=== PATIENT | male | born 1965 | race Caucasian/White ===

== ENCOUNTER 2018-07-16 01:47 | Inpatient (IN) | END 2018-07-18 17:52 | disposition home or self-care (01) | DRG 433 ==

== ENCOUNTER 2018-07-20 01:54 | Observation (INO) | END 2018-07-20 15:20 | disposition home or self-care (01) ==

== ENCOUNTER 2018-09-16 22:48 | Emergency (ER) | payer OTHER ==
[~2018-09-16] VITALS: Ht 172.7 cm; Wt 102.1 kg
[~2018-09-16 22:48] MED LIST: FURO20TA3 PO; NICO2GUM7 BUCCAL; SPIR50TA PO; THIA100T56 PO
[2018-09-16 22:55] VITALS: Ht 172.7 cm; Wt 102.1 kg
--- NOTE | 2018-09-17 00:51 | ERD ---
ER Documentation Chief Complaint Chief Complaint abdo Distention HPI The patient is a 53-year-old male, presenting to the ER because of recurrent abdominal distention for the last couple days, wants to have abdominocentesis, last abdominal paracentesis was June 2018. He denies fever, chills, cough, neck pain, chest pain, dyspnea, vomiting or dysuria. He last drank about 2 months ago, smokes socially Past medical history: Cirrhosis, history of alcohol dependence, hepatitis C, ventral hernia, hypertension Past surgical history: Right wrist ROS All systems reviewed and are negative except as per history of present illness. Medications Home Meds Active Scripts Furosemide* (Furosemide*) 20 Mg Tablet, 20 MG PO BID, #60 TAB 1 Refill Prov:ALDO ZURITA 07/20/18 Discontinued Scripts Spironolactone* (Aldactone*) 50 Mg Tablet, 50 MG PO BID, #60 TAB 1 Refill Prov:ALDO ZURITA 07/20/18 Thiamine* (Vitamin B-1*) 100 Mg Tablet, 100 MG PO DAILY for 30 Days, #30 TAB 3 Refills Prov:DREW REY MD 07/18/18 Nicotine Polacrilex (Nicorette) 2 Mg Gum, 2 MG BUCCAL Q4H PRN for NICOTINE WITHDRAWAL for 1 Day, #1 Prov:DREW REY MD 07/18/18 Allergies Allergies: Coded Allergies: No Known Allergy (Unverified , 09/17/18) PMhx/Soc History of Surgery: Yes (right arm rods s/p fall) Anesthesia Reaction: No Hx Neurological Disorder: No Hx Respiratory Disorders: No Hx Cardiac Disorders: Yes Hx Psychiatric Problems: No Hx Miscellaneous Medical Probl: No Hx Alcohol Use: Yes (6-10 beer a day) Hx Substance Use: No Hx Tobacco Use: Yes (.5 pack/day) Physical Exam Vitals Vital Signs Date Temp Pulse Resp B/P (MAP) Pulse Ox O2 O2 Flow FiO2 Time Delivery Rate 09/17/18 76 17 112/67 99 Room Air 03:24 (82) 09/17/18 98.1 89 17 162/93 100 Room Air 01:05 (116) 09/16/18 98.5 97 16 142/73 100 22:55 (96) Physical Exam Const: No acute distress. Head: Atraumatic. Eyes: Normal Conjunctiva. ENT: Normal External Ears, Nose and Mouth. Neck: Full range of motion. No meningismus. Resp: Clear to auscultation bilaterally. Cardio: Regular rate and rhythm. Abd: Soft, distended, normal bowel sounds, non tender, ventral hernia. Skin: No petechiae or rashes. Back: No midline or flank tenderness. Ext: No cyanosis, or edema. Neur: Awake and alert. No focal deficit Psych: Normal Mood and Affect. Result Diagram: 09/17/18 [id number] Results 24 hrs Laboratory Tests Test 09/17/18 01:30 09/17/18 02:21 White Blood Count 4.8 10^3/ul Red Blood Count 2.30 10^6/ul Hemoglobin 8.2 g/dl Hematocrit 24.3 % Mean Corpuscular Volume 105.7 fl Mean Corpuscular Hemoglobin 35.7 pg Mean Corpuscular Hemoglobin Concent 33.7 g/dl Red Cell Distribution Width 13.5 % Platelet Count 85 10^3/UL Mean Platelet Volume 10.4 fl Immature Granulocytes % 0.400 % Neutrophils % 45.0 % Lymphocytes % 30.5 % Monocytes % 13.2 % Eosinophils % 9.6 % Basophils % 1.3 % Nucleated Red Blood Cells % 0.0 /100WBC Immature Granulocytes # 0.020 10^3/ul Neutrophils # 2.2 10^3/ul Lymphocytes # 1.5 10^3/ul Monocytes # 0.6 10^3/ul Eosinophils # 0.5 10^3/ul Basophils # 0.1 10^3/ul Nucleated Red Blood Cells # 0.0 10^3/ul Sodium Level 133 mmol/L Potassium Level 3.7 mmol/L Chloride Level 101 mmol/L Carbon Dioxide Level 26 mmol/L Anion Gap 6 Blood Urea Nitrogen 14 mg/dl Creatinine 0.71 mg/dl Est Glomerular Filtrat Rate mL/min > 60 mL/min Glucose Level 139 mg/dl Calcium Level 8.0 mg/dl Total Bilirubin 1.0 mg/dl Direct Bilirubin 0.00 mg/dl Indirect Bilirubin 1.0 mg/dl Aspartate Amino Transf (AST/SGOT) 41 IU/L Alanine Aminotransferase (ALT/SGPT) 32 IU/L Alkaline Phosphatase 177 IU/L Total Protein 7.3 g/dl Albumin 2.6 g/dl Globulin 4.70 g/dl Albumin/Globulin Ratio 0.55 Lipase 316 U/L Bedside Urine pH (LAB) 5.5 Bedside Urine Protein (LAB) Trace Bedside Urine Glucose (UA) Negative Bedside Urine Ketones (LAB) Negative Bedside Urine Blood Trace-lysed Bedside Urine Nitrite (LAB) Negative Bedside Urine Leukocyte Esterase (L Negative Current Medications Medications Dose Sig/Vernell Start Time Status Last (Trade) Ordered Route PRN Stop Time Admin Dose Reason Admin 1 tab ONCE ONCE 09/17/18 DC 09/17/18 Acetaminophen PO 01:30 01:35 / 09/17/18 01:31 Hydrocodone Bitart ([place] (5/325)) Ondansetron 4 mg ONCE STAT 09/17/18 DC 09/17/18 HCl (Zofran ODT 01:11 01:35 Odt) 09/17/18 01:13 Procedures/MDM MEDICAL MAKING DECISION: The patient is a 53-year-old male, presenting with recurrent ascites, was treated with [place] 5 mg p.o. for pain and Zofran ODT for nausea with good response. He was advised that there is no interventional radiologist available and advised to return in the morning for abdominal paracentesis. I do not suspect SBP The differential diagnoses considered include but are not limited to cholelithiasis, cholecystitis, choledocholithiasis, cholangitis, pancreatitis, hepatitis, gastritis, peptic ulcer disease, gastric ulcer, appendicitis, cystitis, diverticulitis, partial small bowel obstruction. Departure Diagnosis: Primary Impression: Ascites Additional Impressions: Anemia Thrombocytopenia Condition: Good Comments He was advised to return in the morning for abdominal paracentesis DAYA BAHENA MD Sep 17, 2018 00:51
[2018-09-17] MEDS ORDERED: ONDANSETRON (ODT) 4 MG TAB ODT STA (01:11)
[2018-09-17] MEDS ORDERED: HYDROCODONE/APAP (5/325) TAB PO ONE (01:30)
[2018-09-17 03:24] VITALS: BP 112/67; PULSE 76; RESP 17
[2018-09-17] MEDS ORDERED: SPIR50TA PO (17:36)
== END 2018-09-17 03:25 | disposition home or self-care (01) ==
LOC: E/R 22:48
DX: R18.8 Other ascites (principal); D64.9 Anemia, unspecified; D69.6 Thrombocytopenia, unspecified; F17.210 Nicotine dependence, cigarettes, uncomplicated; I10 Essential (primary) hypertension
CPT/HCPCS: 36415; 80053; 81003; 83690; 85025; Z7502; Z7610; 99283

== ENCOUNTER 2018-09-17 15:31 | Emergency (ER) | payer OTHER ==
[~2018-09-17] VITALS: Ht 177.8 cm; Wt 91.0 kg
[2018-09-17 15:33] VITALS: Ht 177.8 cm; Wt 91.0 kg
[2018-09-17] MEDS ORDERED: SPIR50TA PO (17:36)
--- NOTE | 2018-09-17 18:45 | ERD ---
ER Documentation Chief Complaint Chief Complaint pt is bib self with c/o needs paracentesis HPI This is a 53-year-old male who presented to the emergency department a known history of alcoholic liver cirrhosis. The patient indicates his last paracentesis was roughly 1 week prior to arrival. The patient indicates he is been experiencing worsening abdominal distention but denies any fever shaking or chills. He denies any hemoptysis hematemesis no melanotic stools. He is complaining of mild dyspnea which he states is a common symptom he experiences just prior to him requiring a paracentesis. He denies any chest pain. He states he was here yesterday at the hospital but the interventional radiologist was not present and therefore did not undergo the paracentesis. He states that ancillary laboratory work was obtained yesterday. He indicates he has not consumed alcohol for 60 days. ROS All systems reviewed and are negative except as per history of present illness. Medications Home Meds Active Scripts Furosemide* (Furosemide*) 20 Mg Tablet, 20 MG PO BID, #60 TAB 1 Refill Prov:ALDO ZURITA 07/20/18 Reported Medications Spironolactone* (Aldactone*) 50 Mg Tablet, 50 MG PO BID, #60 TAB 09/17/18 Discontinued Scripts Spironolactone* (Aldactone*) 50 Mg Tablet, 50 MG PO BID, #60 TAB 1 Refill Prov:ALDO ZURITA 07/20/18 Thiamine* (Vitamin B-1*) 100 Mg Tablet, 100 MG PO DAILY for 30 Days, #30 TAB 3 Refills Prov:DREW REY MD 07/18/18 Nicotine Polacrilex (Nicorette) 2 Mg Gum, 2 MG BUCCAL Q4H PRN for NICOTINE WITHDRAWAL for 1 Day, #1 Prov:DREW REY MD 07/18/18 Allergies Allergies: Coded Allergies: No Known Allergy (Unverified , 09/17/18) PMhx/Soc History of Surgery: Yes (ORTHOPEDIC 1989) Anesthesia Reaction: No Hx Neurological Disorder: No Hx Respiratory Disorders: No Hx Cardiac Disorders: Yes (HTN) Hx Psychiatric Problems: No Hx Miscellaneous Medical Probl: Yes (UMBILICAL HERNIA, CIRRHOSIS ) Hx Alcohol Use: Yes (LAST DRINK 60 DAYS AGO) Hx Substance Use: No Hx Tobacco Use: Yes Physical Exam Vitals Vital Signs Date Temp Pulse Resp B/P (MAP) Pulse Ox O2 O2 Flow FiO2 Time Delivery Rate 09/17/18 98.9 100 18 145/84 98 15:33 (104) Physical Exam Constitutional:Well-developed. Well-nourished. HEENT:Normocephalic. Atraumatic.Pupils were equal round reactive to light. Moist mucous membranes.No tonsillar exudates. Neck: No nuchal rigidity. No lymphadenopathy. No posterior cervical spine tenderness or step-offs. Respiratory: Not using accessory muscles of respiration.Lungs were clear to auscultation bilaterally. No rhonchi. No rales. No wheezing. Cardiovascular: Regular rate regular rhythm.No murmurs. No rubs were appreciated.S1, S2 normal. Distal pulses are palpable 2+ bilaterally. GI: Abdomen distended with tense ascites. Positive fluid thrill. No tenderness. No pulsatile abdominal masses or bruits. No rebound. No guarding. Bowel sounds were present and normal. Muscle skeletal: Full range of motion of both the upper and lower extremities bilaterally.Normal muscle tone.No assymetrical calf tenderness or swelling. Skin: No petechia, no purpura. No lesions on the palms or the soles of the feet. No maculopapular rash. NEURO: Patient was alert, awake, orientated x3.No facial droop. Gait observed and normal with no ataxia.Speech had regular rate and rhythm. No focal neurological deficits. Procedures/MDM This is a 53-year-old male who presented to the emergency department for therapeutic paracentesis. The patient indicates he takes 20 mg of Lasix on a daily basis. He is following up on an outpatient clinic and currently is undergoing insurance changes to [place] to require definitive care. The patient had ancillary laboratory work obtained yesterday but did not have a coagulation panel. Therefore INR and PT PTT was obtained. These are within normal limits. The patient had mild thrombocytopenia. The interventional radiologist did perform a paracentesis with removal of 5 L of transparent fluid. There is no evidence of spontaneous bacterial peritonitis. The patient tolerated the procedure well. The patient was discharged home in fair condition. They were instructed to return to the emergency department at any time if there was any worsening of their condition. The patient stated they would follow up with their PCP in the next 24-48 hours to initiate a suitable medication regimen under the care of their PCP as well as to allow their PCP to monitor any drug reactions. The patient was discharged home with prescriptions after they gave informed consent to the new medication. They were also fully informed by myself on the adverse effects and adverse drug interactions in order to provide adequate safeguards to prevent possible adverse reactions to medications. Departure Diagnosis: Primary Impression: Ascites Ascites type: due to alcoholic cirrhosis Qualified Codes: K70.31 - Alcoholic cirrhosis of liver with ascites Condition: CHARAN Liu MD Sep 17, 2018 18:45
[2018-09-17 20:29] VITALS: BP 137/72; PULSE 85; RESP 16
== END 2018-09-17 20:29 | disposition home or self-care (01) ==
LOC: E/R 15:31
DX: K70.31 Alcoholic cirrhosis of liver with ascites (principal); Z87.891 Personal history of nicotine dependence
CPT/HCPCS: 49083; 85610; 85730; Z7502; Z7610

== ENCOUNTER 2018-09-25 14:43 | Emergency (ER) | payer OTHER ==
[~2018-09-25] VITALS: Ht 167.6 cm; Wt 103.1 kg
[~2018-09-25 14:43] MED LIST changes: -NICO2GUM7 BUCCAL; -THIA100T56 PO
[2018-09-25 14:48] VITALS: Ht 167.6 cm; Wt 103.1 kg
[2018-09-25] MEDS ORDERED: LIDOCAINE/MYLANTA 40 ML BTL PO STA (15:43)
[2018-09-25] MEDS ORDERED: FAMOTIDINE 20 MG INJ IV STA (15:43)
[2018-09-25] MEDS ORDERED: BELLADONNA/PHENOBARBITAL TAB PO STA (15:43)
[2018-09-25] MEDS ORDERED: LISI1TAB8 PO (17:08)
[2018-09-25] MEDS ORDERED: GABA300C16 PO (17:08)
[2018-09-25] MEDS ORDERED: SPIR50TA PO (17:09)
[2018-09-25] MEDS ORDERED: AMLO2.5T78 PO (17:09)
[2018-09-25] MEDS ORDERED: FURO20TA3 PO (17:09)
[2018-09-25] MEDS ORDERED: LIDOCAINE 1% (MPF) 5 ML VIAL ONE (19:02)
--- NOTE | 2018-09-25 19:03 | NUR ---
Ultrasound guided paracentesis of the right side was performed. Dr. Eros Solo aspirated 5000 mL of yellow fluid. Fluid was discarded. Patient tolerated procedure well.
[2018-09-25 19:13] VITALS: BP 102/46; PULSE 80; RESP 14
--- NOTE | 2018-09-25 19:58 | ERD ---
ER Documentation Chief Complaint Chief Complaint Complains of abdominal pain with bloating x 2 days HPI This is a 53-year-old male with a past medical history of hypertension, alcoholic cirrhosis with ascites requiring frequent paracenteses, last paracentesis 1-2 weeks ago who is presenting with desire for paracentesis. The patient endorses progressive worsening abdominal distention and bloating, bilateral lower extremity 1+ pitting edema and slight shortness of breath. He endorses getting these symptoms when he requires a paracentesis. He otherwise feels well. The patient denies feeling sick recently. The patient denies fever or chills. The patient has had no headache or vision changes. The patient does not endorse neck or back pain. The patient denies lightheadedness or dizziness. The patient has had no chest pain or trouble breathing. The patient denies nausea or vomiting. The patient denies changes to bowel movements or urination. The patient has had no focal deficits. The patient has had no weakness or numbness or tingling to the face or extremities. ROS All systems reviewed and are negative except as per history of present illness. Medications Home Meds Reported Medications Amlodipine Besylate* (Amlodipine Besylate*) 2.5 Mg Tablet, 2.5 MG PO DAILY, #30 TAB 09/25/18 Spironolactone* (Aldactone*) 50 Mg Tablet, 50 MG PO BID, #60 TAB 09/25/18 Furosemide* (Furosemide*) 20 Mg Tablet, 20 MG PO BID, #30 TAB 09/25/18 Gabapentin* (Gabapentin*) 300 Mg Capsule, 300 MG PO TID, #90 CAP 09/25/18 Lisinopril/Hydrochlorothiazide (Lisinopril-Hctz 20-25 mg Tab) 1 Each Tablet, 1 EACH PO DAILY, TAB 09/25/18 Spironolactone* (Aldactone*) 50 Mg Tablet, 50 MG PO BID, #60 TAB 09/17/18 Discontinued Scripts Furosemide* (Furosemide*) 20 Mg Tablet, 20 MG PO BID, #60 TAB 1 Refill Prov:ALDO ZURITA 07/20/18 Allergies Allergies: Coded Allergies: No Known Allergy (Unverified , 09/25/18) PMhx/Soc History of Surgery: Yes (R forearm fracture Sx) Anesthesia Reaction: No Hx Neurological Disorder: No Hx Respiratory Disorders: No Hx Cardiac Disorders: Yes (HTN) Hx Psychiatric Problems: No Hx Miscellaneous Medical Probl: Yes (UMBILICAL HERNIA, CIRRHOSIS, ascites ) Hx Alcohol Use: Yes (90 days sober) Hx Substance Use: No Hx Tobacco Use: Yes Smoking Status: Current some day smoker FmHx Family History: No diabetes Physical Exam Vitals Vital Signs Date Temp Pulse Resp B/P (MAP) Pulse Ox O2 O2 Flow FiO2 Time Delivery Rate 09/25/18 80 14 102/46 100 Room Air 19:13 (64) 09/25/18 83 10 107/74 100 Room Air 15:53 (85) 09/25/18 98.3 100 20 116/62 99 14:48 (80) Physical Exam Const: No apparent distress, well-developed, well-nourished Head: Normocephalic, Atraumatic Eyes: Normal Conjunctiva. Extraocular movements intact. Pupils equal, round and reactive to light ENT: Normal External Ears, Nose and Mouth. Neck: Full range of motion. No meningismus. Resp: Scattered wheezes. No rales or rhonchi Cardio: Regular rate and rhythm. No murmurs, rubs or gallops Abd: Distended with ascites. Nontender. No rebound or guarding. Normal bow el sounds Skin: No petechiae or rashes. Mild jaundice. Back: No midline tenderness. No CVA tenderness Ext: No cyanosis, or edema Neur: Awake and alert, oriented 4. Cranial nerves intact. No facial droop. Normal strength, sensation and coordination. Psych: Normal Mood and Affect Result Diagram: 09/25/18 1605 09/25/18 1605 Results 24 hrs Laboratory Tests Test 09/25/18 16:05 White Blood Count 5.4 10^3/ul Red Blood Count 2.45 10^6/ul Hemoglobin 8.9 g/dl Hematocrit 25.8 % Mean Corpuscular Volume 105.3 fl Mean Corpuscular Hemoglobin 36.3 pg Mean Corpuscular Hemoglobin Concent 34.5 g/dl Red Cell Distribution Width 14.2 % Platelet Count 93 10^3/UL Mean Platelet Volume 10.5 fl Immature Granulocytes % 0.200 % Neutrophils % 56.4 % Lymphocytes % 22.9 % Monocytes % 12.7 % Eosinophils % 6.9 % Basophils % 0.9 % Nucleated Red Blood Cells % 0.0 /100WBC Immature Granulocytes # 0.010 10^3/ul Neutrophils # 3.0 10^3/ul Lymphocytes # 1.2 10^3/ul Monocytes # 0.7 10^3/ul Eosinophils # 0.4 10^3/ul Basophils # 0.1 10^3/ul Nucleated Red Blood Cells # 0.0 10^3/ul Urine Color MERYL Urine Clarity SLIGHTLY CLOUDY Urine pH 5.0 Urine Specific [place] 1.020 Urine Ketones TRACE mg/dL Urine Nitrite NEGATIVE mg/dL Urine Bilirubin 1+ mg/dL Urine Urobilinogen 2+ mg/dL Urine Leukocyte Esterase NEGATIVE [place]/ul Urine Microscopic RBC 1 /HPF Urine Microscopic WBC 12 /HPF Urine Squamous Epithelial Cells FEW /HPF Urine Hyaline Casts FEW /HPF Urine Hemoglobin NEGATIVE mg/dL Urine Glucose NEGATIVE mg/dL Urine Total Protein NEGATIVE mg/dl Sodium Level 133 mmol/L Potassium Level 4.2 mmol/L Chloride Level 97 mmol/L Carbon Dioxide Level 26 mmol/L Anion Gap 10 Blood Urea Nitrogen 17 mg/dl Creatinine 0.95 mg/dl Est Glomerular Filtrat Rate mL/min > 60 mL/min Glucose Level 109 mg/dl Calcium Level 8.1 mg/dl Total Bilirubin 1.2 mg/dl Direct Bilirubin 0.00 mg/dl Indirect Bilirubin 1.2 mg/dl Aspartate Amino Transf (AST/SGOT) 43 IU/L Alanine Aminotransferase (ALT/SGPT) 36 IU/L Alkaline Phosphatase 203 IU/L Troponin I < 0.012 ng/ml Total Protein 7.0 g/dl Albumin 2.4 g/dl Globulin 4.60 g/dl Albumin/Globulin Ratio 0.52 Lipase 335 U/L Current Medications Medications Dose Sig/Vernell Start Time Status Last (Trade) Ordered Route PRN Stop Time Admin Dose Reason Admin Famotidine 20 mg ONCE STAT 09/25/18 DC 09/25/18 (Pepcid Iv) IV 15:43 16:18 09/25/18 15:44 40 ml ONCE STAT 09/25/18 DC 09/25/18 Miscellaneous PO 15:43 16:18 Medication 09/25/18 15:44 (Gi Cocktail (2)) [place]/ 2 tab ONCE STAT 09/25/18 DC 09/25/18 Phenobarbital PO 15:43 16:18 () 09/25/18 15:44 Lidocaine 5 ml STK-MED 09/25/18 DC 09/25/18 (Xylocaine ONCE .ROUTE 19:02 19:03 1% (Mpf)) 09/25/18 19:03 Procedures/MDM MDM The patient's presentation warrants further investigation. Previous medical records, if available, were reviewed. LABS The patient's laboratory testing was obtained and reviewed. No emergent treatment was required unless described below. CBC: No E/o of systemic infection. Mild macrocytic anemia and thrombocytopenia, related to cirrhosis and nonemergent. CMP: No E/o severe acidosis or alkalosis or renal failure or diabetic ketoacidosis. Indirect hyperbilirubinemia, potentially related to mild hemolysis possibly from hepatosplenomegaly. No evidence of obstructive cholestatic liver disease at this time. Lipase: No E/o pancreatitis Troponin: No E/o acute ischemia Urine: E/o possible acute infection without hematuria EKG EKG read by me: Rate/Rhythm: Regular rate and rhythm at a rate of 85 bpm Intervals: Normal [place]: Normal Impression: No evidence of acute ischemia or arrhythmia IMAGING Imaging and Radiology interpretation reviewed. Ultrasound paracentesis FINDINGS: Initial images demonstrate ascites. Approximately 5 liters of serous fluid was aspirated and discarded. The patient tolerated the procedure well without complication. IMPRESSION: Successful ultrasound-guided paracentesis. Electronically viewed and signed by .Eros Solo MD, MD on 09/25/2018 19:25 TREATMENT/DISPOSITION The patient presents with abdominal distention secondary to ascites from cirrhosis requiring paracentesis. The patient's not peritoneal, and I have low suspicion for spontaneous bacterial peritonitis. The patient is well-appearing and normotensive. He has no leukocytosis. I have low suspicion for a systemic infection, and I do not feel the patient requires a septic workup. The patient's urinalysis is positive for a possible urinary tract infection given that he has greater than 10 WBCs and his urine. This could be sterile pyuria, but given his comorbidities, I will treat with Keflex. The patient's INR on September 17. Was less than 2. I feel the patient is appropriate for paracentesis. The interventional radiologist completed this without complication. The patient was observed after the procedure and remained normotensive. The patient's symptoms improved significantly. The patient does have slight wheezing on exam. The patient is a chronic smoker, and I do have suspicion for COPD. The patient will be discharged with a prescription for albuterol. I do not feel the patient requires steroids at this time. Upon reevaluation of the patient, symptoms have improved. No emergent diagnoses were identified. At this time, I feel that the patient stable for discharge. The patient was instructed to follow-up with a primary care physician in 1-3 days. The patient will be given strict precautions with which to return to the emergency department. Prescriptions: Albuterol, Keflex Disclaimer: Inadvertent spelling and grammatical errors are likely due to EHR/dictation software use and do not reflect on the overall quality of patient care. Note that the electronic time recorded on this note does not necessarily reflect the actual time of the patient encounter. Departure Diagnosis: Primary Impression: Cirrhosis of liver with ascites Hepatic cirrhosis type: alcoholic cirrhosis Qualified Codes: K70.31 - Alcoholic cirrhosis of liver with ascites Additional Impressions: Status post abdominal paracentesis Macrocytic anemia Thrombocytopenia Indirect hyperbilirubinemia Elevated alkaline phosphatase level UTI (urinary tract infection) Urinary tract infection type: acute cystitis Hematuria presence: without hematuria Qualified Codes: N30.00 - Acute cystitis without hematuria Condition: Stable HANK DUNN MD Sep 25, 2018 19:58
[2018-09-25] MEDS ORDERED: ALBU18HF INHALATION (20:00)
[2018-09-25] MEDS ORDERED: CEPH-443 PO (20:00)
== END 2018-09-25 20:23 | disposition home or self-care (01) ==
LOC: E/R 14:43
DX: K70.31 Alcoholic cirrhosis of liver with ascites (principal); D53.9 Nutritional anemia, unspecified; D69.6 Thrombocytopenia, unspecified; E80.6 Other disorders of bilirubin metabolism; R74.8 Abnormal levels of other serum enzymes; N30.00 Acute cystitis without hematuria; I10 Essential (primary) hypertension; F17.210 Nicotine dependence, cigarettes, uncomplicated; Z48.817 Encounter for surgical aftercare following surgery on the skin and subcutaneous tissue
CPT/HCPCS: 36415; 49083; 80053; 81001; 83690; 84484; 85025; 93005; 96374; Z7502; Z7610; 81003

== ENCOUNTER 2018-09-27 13:14 | Emergency (ER) | payer OTHER ==
[~2018-09-27] VITALS: Ht 170.2 cm; Wt 99.4 kg
[~2018-09-27 13:14] MED LIST changes: +ALBU18HF INHALATION; +AMLO2.5T78 PO; +CEPH-443 PO; +GABA300C16 PO; +LISI1TAB8 PO
[2018-09-27 13:21] VITALS: Ht 170.2 cm; Wt 99.4 kg
--- NOTE | 2018-09-27 16:51 | ERD ---
ER Documentation Chief Complaint Chief Complaint Puncture site on abd darinen 2 days ago still leaking. may need paracentesi HPI 53-year-old male history of hypertension and alcoholic liver cirrhosis with recurrent ascites requiring frequent paracenteses presents the ED today status post paracentesis complaining of ongoing leaking from the puncture site. Chronic abdominal distention but no abdominal pain, nausea, vomiting, hematemesis or hematochezia. Denies chest pain, palpitations or shortness of breath. No headache or confusion. No fevers or chills. ROS All systems reviewed and are negative except as per history of present illness. Medications Home Meds Active Scripts Cephalexin* (Keflex*) 500 Mg Capsule, 500 MG PO BID for 10 Days, CAP Prov:HANK DUNN MD 09/25/18 Albuterol Sulfate* (Ventolin HFA*) 18 Gm Hfa.aer.ad, 2 PUFF INHALATION Q4H, #1 INHALER Prov:HANK DUNN MD 09/25/18 Reported Medications Amlodipine Besylate* (Amlodipine Besylate*) 2.5 Mg Tablet, 2.5 MG PO DAILY, #30 TAB 09/25/18 Spironolactone* (Aldactone*) 50 Mg Tablet, 50 MG PO BID, #60 TAB 09/25/18 Furosemide* (Furosemide*) 20 Mg Tablet, 20 MG PO BID, #30 TAB 09/25/18 Gabapentin* (Gabapentin*) 300 Mg Capsule, 300 MG PO TID, #90 CAP 09/25/18 Lisinopril/Hydrochlorothiazide (Lisinopril-Hctz 20-25 mg Tab) 1 Each Tablet, 1 EACH PO DAILY, TAB 09/25/18 Spironolactone* (Aldactone*) 50 Mg Tablet, 50 MG PO BID, #60 TAB 09/17/18 Discontinued Scripts Furosemide* (Furosemide*) 20 Mg Tablet, 20 MG PO BID, #60 TAB 1 Refill Prov:ALDO ZURITA 07/20/18 Allergies Allergies: Coded Allergies: No Known Allergy (Unverified , 09/27/18) PMhx/Soc Reviewed in chart. As per HPI. 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 Head: Atraumatic Eyes: Normal Conjunctiva ENT: Normal External Ears, Nose and Mouth. Neck: Full range of motion. No JVD. Resp: Breath sounds diminished at the bases but otherwise clear to auscultation bilaterally Cardio: Regular rate and rhythm, no murmurs Abd: Soft, markedly distended, positive fluid wave, nontender, no rebound or guarding. Right lateral puncture wound with minimal leakage of clear fluid. Skin: Spider hemangiomata. No rashes. Back: No midline or flank tenderness Ext: 1+ edema. No calf swelling or tenderness. Neur: Awake and alert. Oriented x4. No focal deficit observed. Psych: Normal Mood and Affect. Patient is on appear anxious or depressed. Procedures/MDM DOCUMENTS REVIEWED: ED nurse, prior records PROCEDURE: Control of leaking peritoneal fluid status post abdominal paracentesis. Patient was placed in the left lateral decubitus position. Leakage stopped. The area was sterilely prepped and dry. Multiple layers of Dermabond were applied with periods of drying in between applications. Patient was then placed in the supine position and there was no further leakage. Sterile dressing was applied. Patient tolerated procedure well. MEDICAL DECISION MAKIN-year-old male history of hypertension and alcoholic liver cirrhosis with recurrent ascites requiring frequent paracenteses presents the ED today status post paracentesis complaining of ongoing leaking from the puncture site. Abdomen is distended but nontender and spontaneous bacterial peritonitis is unlikely. No signs of GI bleeding or hepatic encephalopathy. Lesion was stopped and puncture wound was sealed with Dermabond. Stable for discharge with precautionary instructions and outpatient follow-up as counseled. Counseled patient regarding diagnostic workup, diagnosis and need for followup. Understands to return to ED if symptoms recur, worsen or any other concerns. Departure Diagnosis: Primary Impression: S/P abdominal paracentesis Additional Impression: Ascites Ascites type: due to alcoholic cirrhosis Qualified Codes: K70.31 - Alcoholic cirrhosis of liver with ascites Condition: Stable JONAS TREVIZO MD Sep 27, 2018 16:51
[2018-09-27 17:20] VITALS: BP 130/73; PULSE 79; RESP 22
== END 2018-09-27 17:24 | disposition home or self-care (01) ==
LOC: E/R 13:14
DX: T81.89XA Other complications of procedures, not elsewhere classified, initial encounter (principal); K70.31 Alcoholic cirrhosis of liver with ascites; I10 Essential (primary) hypertension; F17.210 Nicotine dependence, cigarettes, uncomplicated; Y73.3 Surgical instruments, materials and gastroenterology and urology devices (including sutures) associated with adverse incidents
CPT/HCPCS: 99282

== ENCOUNTER 2018-10-01 00:24 | Emergency (ER) | payer OTHER ==
[~2018-10-01] VITALS: Wt 104.0 kg
[2018-10-01 00:32] VITALS: BP 122/75; PULSE 92; RESP 18
--- NOTE | 2018-10-01 00:46 | ERD ---
ER Documentation Chief Complaint Chief Complaint ASCITES, LAST TAPPED 1 WEEK AGO. HPI This is a very pleasant 53-year-old male with a history of alcoholic cirrhosis who presents for evaluation of abdominal distention. Patient had a paracentesis performed last week, he presents again for request for therapeutic paracentesis, he has not had a fever, diarrhea, or shortness of breath. He has been eating and drinking well. ROS All systems reviewed and are negative except as per history of present illness. Medications Home Meds Active Scripts Cephalexin* (Keflex*) 500 Mg Capsule, 500 MG PO BID for 10 Days, CAP Prov:HANK DUNN MD 09/25/18 Albuterol Sulfate* (Ventolin HFA*) 18 Gm Hfa.aer.ad, 2 PUFF INHALATION Q4H, #1 INHALER Prov:HANK DUNN MD 09/25/18 Reported Medications Amlodipine Besylate* (Amlodipine Besylate*) 2.5 Mg Tablet, 2.5 MG PO DAILY, #30 TAB 09/25/18 Spironolactone* (Aldactone*) 50 Mg Tablet, 50 MG PO BID, #60 TAB 09/25/18 Furosemide* (Furosemide*) 20 Mg Tablet, 20 MG PO BID, #30 TAB 09/25/18 Gabapentin* (Gabapentin*) 300 Mg Capsule, 300 MG PO TID, #90 CAP 09/25/18 Lisinopril/Hydrochlorothiazide (Lisinopril-Hctz 20-25 mg Tab) 1 Each Tablet, 1 EACH PO DAILY, TAB 09/25/18 Spironolactone* (Aldactone*) 50 Mg Tablet, 50 MG PO BID, #60 TAB 09/17/18 Discontinued Scripts Furosemide* (Furosemide*) 20 Mg Tablet, 20 MG PO BID, #60 TAB 1 Refill Prov:ALDO ZURITA 07/20/18 Allergies Allergies: Coded Allergies: No Known Allergy (Unverified , 09/27/18) PMhx/Soc History of Surgery: Yes (R forearm fracture Sx) Anesthesia Reaction: No Hx Neurological Disorder: No Hx Respiratory Disorders: No Hx Cardiac Disorders: Yes (HTN) Hx Psychiatric Problems: No Hx Miscellaneous Medical Probl: Yes (UMBILICAL HERNIA, CIRRHOSIS, ascites ) Hx Alcohol Use: Yes (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 Neck: Full range of motion. No meningismus. Resp: Clear to auscultation bilaterally Cardio: Regular rate and rhythm, no murmurs Abd: Soft, non tender, distention, no rebound or guarding. Normal bowel sounds Skin: No petechiae or rashes Back: No midline or flank tenderness Ext: No cyanosis, or edema Neur: Awake and alert Psych: Normal Mood and Affect Procedures/MDM This is a 53-year-old male with a history of alcoholic cirrhosis who presents for abdominal distention. Patient is well-appearing nontoxic, no infectious signs or symptoms, I do not suspect spontaneous bacterial peritonitis, patient is stable for discharge home, he stated he could return tomorrow, for a therapeutic paracentesis, at discharge the patient was in no acute distress. Departure Diagnosis: Primary Impression: Ascites Ascites type: other type Qualified Codes: R18.8 - Other ascites Condition: Stable CHANTAL KIRAN MD Oct 01, 2018 00:46
== END 2018-10-01 00:51 | disposition home or self-care (01) ==
LOC: E/R 00:24
DX: R18.8 Other ascites (principal); F17.210 Nicotine dependence, cigarettes, uncomplicated; I10 Essential (primary) hypertension
CPT/HCPCS: 99282

== ENCOUNTER 2018-10-01 11:27 | Emergency (ER) | payer OTHER ==
[~2018-10-01] VITALS: Ht 170.2 cm; Wt 101.7 kg
[2018-10-01 11:31] VITALS: Ht 170.2 cm; Wt 101.7 kg
--- NOTE | 2018-10-01 11:42 | ERD ---
ER Documentation Chief Complaint Chief Complaint abdominal distention, needs parasentesis, last time 6 days ago HPI 33-year-old male with a history of alcoholic liver cirrhosis and recurrent ascites presents the ED planing of increasing abdominal distention requesting paracentesis. Denies abdominal pain, nausea, vomiting, hematemesis, hematochezia, melena, fevers or chills. Most recent paracentesis was 6 days ago. ROS All systems reviewed and are negative except as per history of present illness. Medications Home Meds Active Scripts Cephalexin* (Keflex*) 500 Mg Capsule, 500 MG PO BID for 10 Days, CAP Prov:HANK DUNN MD 09/25/18 Albuterol Sulfate* (Ventolin HFA*) 18 Gm Hfa.aer.ad, 2 PUFF INHALATION Q4H, #1 INHALER Prov:HANK DUNN MD 09/25/18 Reported Medications Amlodipine Besylate* (Amlodipine Besylate*) 2.5 Mg Tablet, 2.5 MG PO DAILY, #30 TAB 09/25/18 Spironolactone* (Aldactone*) 50 Mg Tablet, 50 MG PO BID, #60 TAB 09/25/18 Furosemide* (Furosemide*) 20 Mg Tablet, 20 MG PO BID, #30 TAB 09/25/18 Gabapentin* (Gabapentin*) 300 Mg Capsule, 300 MG PO TID, #90 CAP 09/25/18 Lisinopril/Hydrochlorothiazide (Lisinopril-Hctz 20-25 mg Tab) 1 Each Tablet, 1 EACH PO DAILY, TAB 09/25/18 Discontinued Reported Medications Spironolactone* (Aldactone*) 50 Mg Tablet, 50 MG PO BID, #60 TAB 09/17/18 Discontinued Scripts Furosemide* (Furosemide*) 20 Mg Tablet, 20 MG PO BID, #60 TAB 1 Refill Prov:ALDO ZURITA 07/20/18 Allergies Allergies: Coded Allergies: No Known Allergy (Unverified , 10/01/18) PMhx/Soc History of Surgery: Yes (R forearm fracture Sx) Anesthesia Reaction: No Hx Neurological Disorder: No Hx Respiratory Disorders: No Hx Cardiac Disorders: Yes (HTN) Hx Psychiatric Problems: No Hx Miscellaneous Medical Probl: Yes (UMBILICAL HERNIA, CIRRHOSIS, ascites ) Hx Alcohol Use: Yes (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 Neck: Full range of motion. No meningismus. Resp: Clear to auscultation bilaterally Cardio: Regular rate and rhythm, no murmurs Abd: Soft, distended, positive fluid wave. Nontender. No rebound or guarding. Skin: No petechiae or rashes. Spider hemangiomata. Back: No midline or flank tenderness Ext: No cyanosis, or edema Neur: Awake and alert Psych: Normal Mood and Affect Results 24 hrs Current Medications Medications Dose Sig/Vernell Start Time Status Last (Trade) Ordered Route PRN Stop Time Admin Dose Reason Admin Lidocaine 100 mg STK-MED 10/01/18 DC (Xylocaine ONCE .ROUTE 14:00 10/01/18 2% (Sdv)) 14:01 Procedures/MDM DOCUMENTS REVIEWED: ED nurse, prior ED, prior records REEXAMINATION/REEVALUATION: Time: 14:08. Doing well. Symptomatically improved. No hypotension. Mild leakage from puncture wound. Puncture wound sealed with Dermabond and there is no further leakage. MEDICAL DECISION MAKIN-year-old male with a history of alcoholic liver cirrhosis and recurrent ascites presents the ED planing of increasing abdominal distention requesting paracentesis. Paracentesis performed by interventional radiology and 5 liters removed. Patient feels significantly better. No hypotension. No fever, leukocytosis, abdominal tenderness or other signs of an acute intra-abdominal process including but not limited to spontaneous bacterial peritonitis. Stable for discharge with precautionary instructions and outpatient follow-up as counseled. Counseled patient regarding diagnostic workup, diagnosis and need for followup. Understands to return to ED for bleeding, pain, discharge from puncture site or any other concerns. Departure Diagnosis: Primary Impression: Ascites due to alcoholic cirrhosis Additional Impression: History of abdominal paracentesis Condition: Stable (Improved) JONAS TREVIZO MD Oct 01, 2018 11:42
[2018-10-01] MEDS ORDERED: LIDOCAINE 2% (SDV) 5 ML INJ ONE (14:00)
--- NOTE | 2018-10-01 14:02 | NUR ---
Paracentesis- PT TO US FOR US GUIDED PARACENTESIS. PT HAS HAD PROCEDURE IN PAST. PT VERBALIZED UNDERSTANDING OF PROCEDURE CONSENT SIGNED. PREPROCEDURE VITAL SIGNS. T-97.8, hr 74, R-22, Bp- 120.55. 02 SAT 100% ON RA. TIME OUT AT 1330 WITH PT AND STAFF ALL AGREE RIGHT PT FOR RIGHT PROCEDURE. PROCEDURE STARTED PER PROTOCOL. 5 LITERS OF FLUID REMOVED FROM RIGHT SIDE PARACENTESIS. PT TOLERATED PROCEDURE WELL. POST VITAL SIGNS. T-97.6, HR-74,R-20,Bp 110/58, 02 SAT 100 % ON RA. A/O X'S 4. NO C/O PAIN.
[2018-10-01 14:32] VITALS: BP 133/76; PULSE 72; RESP 18
== END 2018-10-01 14:32 | disposition home or self-care (01) ==
LOC: E/R 11:27
DX: K70.31 Alcoholic cirrhosis of liver with ascites (principal); I10 Essential (primary) hypertension; F17.210 Nicotine dependence, cigarettes, uncomplicated; Z98.890 Other specified postprocedural states
CPT/HCPCS: Z7502; Z7610

== ENCOUNTER 2018-10-14 12:45 | Emergency (ER) | payer OTHER ==
[~2018-10-14] VITALS: Wt 106.3 kg
[~2018-10-14 12:45] MED LIST changes: -CEPH-443 PO
[2018-10-14] MEDS ORDERED: LIDOCAINE 1% (MPF) 5 ML VIAL ONE (14:35)
--- NOTE | 2018-10-14 15:09 | NUR ---
US guided paracentesis performed by Dr Eros Solo. Two vials of 1% lidocaine administered prior to catheter insertion. 5000 cc of ascites fluid removed and discarded. Pt tolerated procedure well.
[2018-10-14 15:11] VITALS: BP 140/77; PULSE 78; RESP 20
--- NOTE | 2018-10-14 15:20 | ERD ---
ER Documentation Chief Complaint Chief Complaint ABD SWELLING LAST PARACENTSIS 2 WEEKS AGO HPI Patient is a 53-year-old male with a history of cirrhosis and ascites who presents for a paracentesis. The patient said that he had his last paracentesis about 2 weeks ago and usually gets paracentesis every 1-2 weeks. He said that his legs are swollen and his abdomen is swollen. He denies fevers. Upon review of old medical records the patient has multiple visits for the same. He does not currently have a primary doctor. ROS All systems reviewed and are negative except as per history of present illness. Medications Home Meds Active Scripts Albuterol Sulfate* (Ventolin HFA*) 18 Gm Hfa.aer.ad, 2 PUFF INHALATION Q4H, #1 INHALER Prov:HANK DUNN MD 09/25/18 Reported Medications Amlodipine Besylate* (Amlodipine Besylate*) 2.5 Mg Tablet, 2.5 MG PO DAILY, #30 TAB 09/25/18 Spironolactone* (Aldactone*) 50 Mg Tablet, 50 MG PO BID, #60 TAB 09/25/18 Furosemide* (Furosemide*) 20 Mg Tablet, 20 MG PO BID, #30 TAB 09/25/18 Gabapentin* (Gabapentin*) 300 Mg Capsule, 300 MG PO TID, #90 CAP 09/25/18 Lisinopril/Hydrochlorothiazide (Lisinopril-Hctz 20-25 mg Tab) 1 Each Tablet, 1 EACH PO DAILY, TAB 09/25/18 Discontinued Scripts Cephalexin* (Keflex*) 500 Mg Capsule, 500 MG PO BID for 10 Days, CAP Prov:HANK DUNN MD 09/25/18 Allergies Allergies: Coded Allergies: No Known Allergy (Unverified , 10/14/18) PMhx/Soc History of Surgery: Yes (R forearm fracture Sx) Anesthesia Reaction: No Hx Neurological Disorder: No Hx Respiratory Disorders: No Hx Cardiac Disorders: Yes (HTN) Hx Psychiatric Problems: No Hx Miscellaneous Medical Probl: Yes (HEPATITIS C, UMBILICAL HERNIA, CIRRHOSIS, ASCITIES) Hx Alcohol Use: Yes (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 Neck: Full range of motion. No meningismus. Resp: Clear to auscultation bilaterally Cardio: Regular rate and rhythm, no murmurs Abd: Abdominal distention with positive fluid wave Skin: No petechiae or rashes Back: No midline or flank tenderness Ext: Edema bilateral lower extremities Neur: Awake and alert Psych: Normal Mood and Affect Procedures/MDM Ultrasound-guided paracentesis performed by radiology. Patient is a 53-year-old male who presents with ascites. I doubt spontaneous bacterial peritonitis. Paracentesis was performed by radiology and the patient will be discharged. He can return for any worsening symptoms. I told him that he needs to follow-up with a primary doctor in [place] where he lives and should try to schedule outpatient paracentesis. Smoking Cessation Therapy: Pt. was lectured for greater than 3 minutes on the health risks of continued smoking and the benefits of cessation. Departure Diagnosis: Primary Impression: Ascites Ascites type: other type Qualified Codes: R18.8 - Other ascites Condition: Fair Patient Instructions: Ascites Referrals: [facility] YOU HAVE RECEIVED A MEDICAL SCREENING EXAM AND THE RESULTS INDICATE THAT YOU DO NOT HAVE A CONDITION THAT REQUIRES URGENT TREATMENT IN THE EMERGENCY DEPARTMENT. FURTHER EVALUATION AND TREATMENT OF YOUR CONDITION CAN WAIT UNTIL YOU ARE SEEN IN YOUR DOCTORS OFFICE WITHIN THE NEXT 1-2 DAYS. IT IS YOUR RESPONSIBILITY TO MAKE AN APPOINTMENT FOR FOLOW-UP CARE. IF YOU HAVE A PRIMARY DOCTOR --you should call your primary doctor and schedule an appointment IF YOU DO NOT HAVE A PRIMARY DOCTOR YOU CAN CALL OUR PHYSICIAN REFERRAL HOTLINE AT IF YOU CAN NOT AFFORD TO SEE A PHYSICIAN YOU CAN CHOSE FROM THE FOLLOWING [facility] [address] [facility]. [facility] [address] [facility]. [facility] [address] [facility] [address] [facility] [address] [facility]. [facility] [address] Additional Instructions: Call your primary care doctor TOMORROW for an appointment during the next 1 WEEK.Tell the secretary office clerk that you were referred from this facility.See the doctor sooner or return here if your condition worsens before your appointment time. RAZ TURK MD Oct 14, 2018 15:20
== END 2018-10-14 15:20 | disposition home or self-care (01) ==
LOC: E/R 12:45
DX: R18.8 Other ascites (principal); F17.210 Nicotine dependence, cigarettes, uncomplicated; I10 Essential (primary) hypertension
CPT/HCPCS: Z7502; Z7610

== ENCOUNTER 2018-10-16 13:42 | Emergency (ER) | payer OTHER ==
[~2018-10-16] VITALS: Wt 101.8 kg
[2018-10-16 13:48] VITALS: BP 144/68; PULSE 96; RESP 18
--- NOTE | 2018-10-16 14:20 | ERD ---
ER Documentation Chief Complaint Chief Complaint discharge from paracentesis site HPI Patient is a 53-year-old male with a history of cirrhosis and ascites who presents with leakage to the right abdomen. He had a paracentesis performed at [facility] just a few days ago and it has been leaking since. He has had this happen to him in the past and he has required Dermabond to stop the oozing. He has no other complaints. ROS All systems reviewed and are negative except as per history of present illness. Medications Home Meds Active Scripts Albuterol Sulfate* (Ventolin HFA*) 18 Gm Hfa.aer.ad, 2 PUFF INHALATION Q4H, #1 INHALER Prov:HANK DUNN MD 09/25/18 Reported Medications Amlodipine Besylate* (Amlodipine Besylate*) 2.5 Mg Tablet, 2.5 MG PO DAILY, #30 TAB 09/25/18 Spironolactone* (Aldactone*) 50 Mg Tablet, 50 MG PO BID, #60 TAB 09/25/18 Furosemide* (Furosemide*) 20 Mg Tablet, 20 MG PO BID, #30 TAB 09/25/18 Gabapentin* (Gabapentin*) 300 Mg Capsule, 300 MG PO TID, #90 CAP 09/25/18 Lisinopril/Hydrochlorothiazide (Lisinopril-Hctz 20-25 mg Tab) 1 Each Tablet, 1 EACH PO DAILY, TAB 09/25/18 Allergies Allergies: Coded Allergies: No Known Allergy (Unverified , 10/16/18) PMhx/Soc History of Surgery: Yes (R forearm fracture Sx) Anesthesia Reaction: No Hx Neurological Disorder: No Hx Respiratory Disorders: No Hx Cardiac Disorders: Yes (HTN) Hx Psychiatric Problems: No Hx Miscellaneous Medical Probl: Yes (HEPATITIS C, UMBILICAL HERNIA, CIRRHOSIS, ASCITIES) Hx Alcohol Use: Yes (90 days sober) Hx Substance Use: No Hx Tobacco Use: Yes (3-5 cigs/ daily down from 1 pack/ daily) FmHx Family History: No diabetes Physical Exam Vitals Vital Signs Date Temp Pulse Resp B/P (MAP) Pulse Ox O2 O2 Flow FiO2 Time Delivery Rate 10/16/18 98.0 96 18 144/68 99 13:48 (93) Physical Exam Const: No acute distress Head: Atraumatic Eyes: Normal Conjunctiva ENT: Normal External Ears, Nose and Mouth. Neck: Full range of motion. No meningismus. Resp: Clear to auscultation bilaterally Cardio: Regular rate and rhythm, no murmurs Abd: Abdominal distention with oozing of clear fluid to the right abdomen from paracentesis site Skin: No petechiae or rashes Back: No midline or flank tenderness Ext: No cyanosis, or edema Neur: Awake and alert Psych: Normal Mood and Affect Procedures/MDM Laceration Repair by me: Anesthesia: None required Location: Right abdomen Technique: Dermabond Patient had the oozing from the paracentesis site controlled with Dermabond and a dressing. The patient will be discharged. He can follow-up with a primary doctor within 1 week. He can return for any worsening symptoms. Departure Diagnosis: Primary Impression: Ascites Ascites type: other type Qualified Codes: R18.8 - Other ascites Additional Impression: Wound drainage Condition: Fair Patient Instructions: Wound Care Referrals: Your doctor Additional Instructions: Call your primary care doctor TOMORROW for an appointment during the next 1 WEEK.Tell the clinical secretary that you were referred from this facility.See the doctor sooner or return here if your condition worsens before your appointment time. RAZ TURK MD Oct 16, 2018 14:20
== END 2018-10-16 14:40 | disposition home or self-care (01) ==
LOC: E/R 13:42
DX: T81.89XA Other complications of procedures, not elsewhere classified, initial encounter (principal); R18.8 Other ascites; I10 Essential (primary) hypertension; Y82.9 Unspecified medical devices associated with adverse incidents; Z87.891 Personal history of nicotine dependence
CPT/HCPCS: 12001; Z7502; Z7610

== ENCOUNTER 2018-10-20 13:22 | Emergency (ER) | payer OTHER ==
[~2018-10-20] VITALS: Ht 172.7 cm; Wt 104.3 kg
[2018-10-20 14:21] VITALS: Ht 172.7 cm; Wt 104.3 kg
[2018-10-20] MEDS ORDERED: LIDOCAINE 1% (MPF) 5 ML VIAL ONE (17:32)
[2018-10-20 18:45] VITALS: BP 128/75; PULSE 88; RESP 20
--- NOTE | 2018-10-20 20:21 | ERD ---
ER Documentation Chief Complaint Chief Complaint increased AP, swelling: frequent paracentesis. swelling testicles x 1wk HPI 53-year-old man complains of abdominal swelling has a long history of alcoholic cirrhosis and recurrent ascites and is here requesting paracentesis. He denies fevers or chills, no dysuria, no blood per rectum or melena, no complaints of chest pain or shortness of breath. ROS All systems reviewed and are negative except as per history of present illness. Medications Home Meds Active Scripts Albuterol Sulfate* (Ventolin HFA*) 18 Gm Hfa.aer.ad, 2 PUFF INHALATION Q4H, #1 INHALER Prov:HANK DUNN MD 09/25/18 Reported Medications Amlodipine Besylate* (Amlodipine Besylate*) 2.5 Mg Tablet, 2.5 MG PO DAILY, #30 TAB 09/25/18 Spironolactone* (Aldactone*) 50 Mg Tablet, 50 MG PO BID, #60 TAB 09/25/18 Furosemide* (Furosemide*) 20 Mg Tablet, 20 MG PO BID, #30 TAB 09/25/18 Gabapentin* (Gabapentin*) 300 Mg Capsule, 300 MG PO TID, #90 CAP 09/25/18 Lisinopril/Hydrochlorothiazide (Lisinopril-Hctz 20-25 mg Tab) 1 Each Tablet, 1 E ACH PO DAILY, TAB 09/25/18 Allergies Allergies: Coded Allergies: No Known Allergy (Unverified , 10/20/18) PMhx/Soc Cirrhosis, ascites, hypertension History of Surgery: Yes (R forearm fracture Sx) Anesthesia Reaction: No Hx Neurological Disorder: No Hx Respiratory Disorders: No Hx Cardiac Disorders: Yes (HTN) Hx Psychiatric Problems: No Hx Miscellaneous Medical Probl: Yes (HEPATITIS C, UMBILICAL HERNIA, CIRRHOSIS, ASCITIES) Hx Alcohol Use: Yes (90 days sober) Hx Substance Use: No Hx Tobacco Use: Yes (3-5 cigs/ daily down from 1 pack/ daily) Smoking Status: Current every day smoker FmHx Family History: No diabetes Physical Exam Vitals Vital Signs Date Temp Pulse Resp B/P (MAP) Pulse Ox O2 O2 Flow FiO2 Time Delivery Rate 10/20/18 97.3 88 20 128/75 100 Room Air 18:45 (92) 10/20/18 96.9 83 16 130/76 99 14:21 (94) Physical Exam Const: No acute distress Head: Atraumatic Eyes: Normal Conjunctiva ENT: Normal External Ears, Nose and Mouth. Neck: Full range of motion. No meningismus. Resp: Clear to auscultation bilaterally Cardio: Regular rate and rhythm, no murmurs Abd: Soft, distended, protuberant abdomen with positive hepatomegaly Skin: No petechiae or rashes Back: No midline or flank tenderness Ext: No cyanosis, or edema Neur: Awake and alert x3, no focal deficits or facial asymmetry Psych: Normal Mood and Affect Results 24 hrs Current Medications Medications Dose Sig/Vernell Start Time Status Last (Trade) Ordered Route PRN Stop Time Admin Dose Reason Admin Lidocaine 5 ml STK-MED 10/20/18 DC 10/20/18 (Xylocaine ONCE .ROUTE 17:32 17:55 1% (Mpf)) 10/20/18 17:33 Procedures/MDM Ultrasound-guided paracentesis was performed 5 L of ascitic fluid removed, patient feels better. Patient feels much better at this time, and vital signs are normal, symptoms have improved. I did give strict instructions to return to the ED if symptoms continue or worsen, patient will otherwise follow-up with primary care physician. Patient understood instructions and agreed to plan. Disclaimer: Inadvertent spelling and grammatical errors are likely due to EHR/dictation software use and do not reflect on the overall quality of patient care. Also, please note that the electronic time recorded on this note does not necessarily reflect the actual time of the patient encounter. Departure Diagnosis: Primary Impression: Ascites Ascites type: due to alcoholic hepatitis Qualified Codes: K70.11 - Alcoholic hepatitis with ascites Condition: Good Patient Instructions: Ascites CHANTAL HARDIN MD Oct 20, 2018 20:21
== END 2018-10-20 18:48 | disposition home or self-care (01) ==
LOC: E/R 13:22
DX: K70.11 Alcoholic hepatitis with ascites (principal); I10 Essential (primary) hypertension; F17.210 Nicotine dependence, cigarettes, uncomplicated
CPT/HCPCS: Z7502; Z7610

== ENCOUNTER 2018-10-24 13:07 | Emergency (ER) | payer OTHER ==
[~2018-10-24] VITALS: Ht 170.2 cm; Wt 100.0 kg
[2018-10-24 13:22] VITALS: BP 135/90; PULSE 99; RESP 16; Ht 170.2 cm; Wt 100.0 kg
--- NOTE | 2018-10-24 14:16 | ERD ---
ER Documentation Chief Complaint Chief Complaint IN ED FOR PARACENTESIS HPI Patient is a 53-year-old male with cirrhosis who presents for ascites. The patient said that his last paracentesis was 8 days ago. He has no fevers. He says that he cannot sleep because of the shortness of breath from the abdominal distention. He has no other complaints. He is well-known to myself and to our staff for frequent visits. ROS All systems reviewed and are negative except as per history of present illness. Medications Home Meds Active Scripts Albuterol Sulfate* (Ventolin HFA*) 18 Gm Hfa.aer.ad, 2 PUFF INHALATION Q4H, #1 INHALER Prov:HANK DUNN MD 09/25/18 Reported Medications Amlodipine Besylate* (Amlodipine Besylate*) 2.5 Mg Tablet, 2.5 MG PO DAILY, #30 TAB 09/25/18 Spironolactone* (Aldactone*) 50 Mg Tablet, 50 MG PO BID, #60 TAB 09/25/18 Furosemide* (Furosemide*) 20 Mg Tablet, 20 MG PO BID, #30 TAB 09/25/18 Gabapentin* (Gabapentin*) 300 Mg Capsule, 300 MG PO TID, #90 CAP 09/25/18 Lisinopril/Hydrochlorothiazide (Lisinopril-Hctz 20-25 mg Tab) 1 Each Tablet, 1 EACH PO DAILY, TAB 09/25/18 Allergies Allergies: Coded Allergies: No Known Allergy (Unverified , 10/20/18) PMhx/Soc History of Surgery: Yes (R forearm fracture Sx) Anesthesia Reaction: No Hx Neurological Disorder: No Hx Respiratory Disorders: No Hx Cardiac Disorders: Yes (HTN) Hx Psychiatric Problems: No Hx Miscellaneous Medical Probl: Yes (HEPATITIS C, UMBILICAL HERNIA, CIRRHOSIS, ASCITIES) 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 Neck: Full range of motion. No meningismus. Resp: Clear to auscultation bilaterally Cardio: Regular rate and rhythm, no murmurs Abd: Abdominal distention with positive fluid wave Skin: No petechiae or rashes Back: No midline or flank tenderness Ext: No cyanosis, or edema Neur: Awake and alert Psych: Normal Mood and Affect Procedures/MDM Patient is a 53-year-old male who presents for acute ascites. He will get an ultrasound-guided paracentesis performed by radiology. The patient has had laboratory studies done within the last 30 days and does not a repeat at this time. I do not believe the patient has spontaneous bacterial peritonitis at this time. Departure Diagnosis: Primary Impression: Ascites Ascites type: other type Qualified Codes: R18.8 - Other ascites Condition: Fair Patient Instructions: Ascites Referrals: Your doctor Additional Instructions: Call your primary care doctor TOMORROW for an appointment during the next 1 WEEK.Tell the nanoscience technician that you were referred from this facility.See the doctor sooner or return here if your condition worsens before your appointment time. RAZ TURK MD Oct 24, 2018 14:16
== END 2018-10-24 17:52 | disposition home or self-care (01) ==
LOC: E/R 13:07
DX: R18.8 Other ascites (principal); I10 Essential (primary) hypertension; F17.210 Nicotine dependence, cigarettes, uncomplicated
CPT/HCPCS: Z7502; Z7610

== ENCOUNTER 2018-11-01 08:48 | Emergency (ER) | payer OTHER ==
[~2018-11-01] VITALS: Ht 175.3 cm; Wt 107.0 kg
[2018-11-01 08:51] VITALS: Ht 175.3 cm; Wt 107.0 kg
[2018-11-01] MEDS ORDERED: LIDOCAINE 1% (MPF) 5 ML VIAL ONE (10:26)
[2018-11-01 10:40] VITALS: BP 155/79; PULSE 89; RESP 20
--- NOTE | 2018-11-01 10:41 | ERD ---
ER Documentation Chief Complaint Chief Complaint ABD PAIN ,SWELLING OF LEGS , NEEDS PARACENTESIS HPI Patient is a 53-year-old male with a history of cirrhosis and ascites who presents for paracentesis. He said that he has abdominal swelling and bilateral leg swelling. He has no fevers. Upon review of old medical records the patient has multiple visits to the ER for paracentesis. He does not currently have a primary doctor. ROS All systems reviewed and are negative except as per history of present illness. Medications Home Meds Active Scripts Albuterol Sulfate* (Ventolin HFA*) 18 Gm Hfa.aer.ad, 2 PUFF INHALATION Q4H, #1 INHALER Prov:HANK DUNN MD 09/25/18 Reported Medications Amlodipine Besylate* (Amlodipine Besylate*) 2.5 Mg Tablet, 2.5 MG PO DAILY, #30 TAB 09/25/18 Spironolactone* (Aldactone*) 50 Mg Tablet, 50 MG PO BID, #60 TAB 09/25/18 Furosemide* (Furosemide*) 20 Mg Tablet, 20 MG PO BID, #30 TAB 09/25/18 Gabapentin* (Gabapentin*) 300 Mg Capsule, 300 MG PO TID, #90 CAP 09/25/18 Lisinopril/Hydrochlorothiazide (Lisinopril-Hctz 20-25 mg Tab) 1 Each Tablet, 1 EACH PO DAILY, TAB 09/25/18 Allergies Allergies: Coded Allergies: No Known Allergy (Unverified , 10/20/18) PMhx/Soc History of Surgery: Yes (R forearm fracture Sx) Anesthesia Reaction: No Hx Neurological Disorder: No Hx Respiratory Disorders: No Hx Cardiac Disorders: Yes (HTN) Hx Psychiatric Problems: No Hx Miscellaneous Medical Probl: Yes (HEPATITIS C, UMBILICAL HERNIA, CIRRHOSIS, ASCITIES) 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 Neck: Full range of motion. No meningismus. Resp: Clear to auscultation bilaterally Cardio: Regular rate and rhythm, no murmurs Abd: Abdominal distention Skin: No petechiae or rashes Back: No midline or flank tenderness Ext: No cyanosis, or edema Neur: Awake and alert Psych: Normal Mood and Affect Result Diagram: 11/01/1892911/01/1830 Results 24 hrs Laboratory Tests Test 11/01/18 09:30 White Blood Count 6.7 10^3/ul Red Blood Count 2.52 10^6/ul Hemoglobin 8.9 g/dl Hematocrit 26.0 % Mean Corpuscular Volume 103.2 fl Mean Corpuscular Hemoglobin 35.3 pg Mean Corpuscular Hemoglobin Concent 34.2 g/dl Red Cell Distribution Width 12.7 % Platelet Count 106 10^3/UL Mean Platelet Volume 9.1 fl Immature Granulocytes % 0.700 % Neutrophils % 53.5 % Lymphocytes % 19.5 % Monocytes % 18.3 % Eosinophils % 7.3 % Basophils % 0.7 % Nucleated Red Blood Cells % 0.0 /100WBC Immature Granulocytes # 0.050 10^3/ul Neutrophils # 3.6 10^3/ul Lymphocytes # 1.3 10^3/ul Monocytes # 1.2 10^3/ul Eosinophils # 0.5 10^3/ul Basophils # 0.1 10^3/ul Nucleated Red Blood Cells # 0.0 10^3/ul Prothrombin Time 16.1 Sec Prothrombin Time Ratio 1.3 INR International Normalized Ratio 1.28 Activated Partial Thromboplast Time 40.9 Sec Sodium Level 130 mmol/L Potassium Level 5.1 mmol/L Chloride Level 101 mmol/L Carbon Dioxide Level 21 mmol/L Anion Gap 8 Blood Urea Nitrogen 24 mg/dl Creatinine 0.94 mg/dl Est Glomerular Filtrat Rate mL/min > 60 mL/min Glucose Level 107 mg/dl Calcium Level 8.0 mg/dl Total Bilirubin 1.0 mg/dl Direct Bilirubin 0.00 mg/dl Indirect Bilirubin 1.0 mg/dl Aspartate Amino Transf (AST/SGOT) 47 IU/L Alanine Aminotransferase (ALT/SGPT) 42 IU/L Alkaline Phosphatase 322 IU/L Total Protein 7.4 g/dl Albumin 2.6 g/dl Globulin 4.80 g/dl Albumin/Globulin Ratio 0.54 Current Medications Medications Dose Sig/Vernell Start Time Status Last (Trade) Ordered Route PRN Stop Time Admin Dose Reason Admin Lidocaine 5 ml STK-MED 11/01/18 DC 11/01/18 (Xylocaine ONCE .ROUTE 10:26 11/01/18 10:30 1% (Mpf)) 10:27 Procedures/MDM Patient is a 53-year-old male with ascites who presents for paracentesis. Laboratory studies were done as he was greater than 30 days from the last set of laboratory studies. Ultrasound-guided paracentesis was done by radiology. I doubt spontaneous bacterial peritonitis. Dermabond was applied to the area centesis site to help with leakage of fluid. The patient can return for any worsening symptoms. He was instructed to follow-up with a primary doctor so that he can schedule his outpatient paracentesis. Departure Diagnosis: Primary Impression: Ascites Ascites type: other type Qualified Codes: R18.8 - Other ascites Condition: Fair Patient Instructions: Ascites Referrals: [facility] YOU HAVE RECEIVED A MEDICAL SCREENING EXAM AND THE RESULTS INDICATE THAT YOU DO NOT HAVE A CONDITION THAT REQUIRES URGENT TREATMENT IN THE EMERGENCY DEPARTMENT. FURTHER EVALUATION AND TREATMENT OF YOUR CONDITION CAN WAIT UNTIL YOU ARE SEEN IN YOUR DOCTORS OFFICE WITHIN THE NEXT 1-2 DAYS. IT IS YOUR RESPONSIBILITY TO MAKE AN APPOINTMENT FOR FOLOW-UP CARE. IF YOU HAVE A PRIMARY DOCTOR --you should call your primary doctor and schedule an appointment IF YOU DO NOT HAVE A PRIMARY DOCTOR YOU CAN CALL OUR PHYSICIAN REFERRAL HOTLINE AT IF YOU CAN NOT AFFORD TO SEE A PHYSICIAN YOU CAN CHOSE FROM THE FOLLOWING [facility] [address] [facility] [address] [facility] [address] [facility] [address] [facility] [address] [facility] [facility]. [address] Additional Instructions: Call your primary care doctor TOMORROW for an appointment during the next 1 WEEK.Tell the medical secretary that you were referred from this facility.See the doctor sooner or return here if your condition worsens before your appointment time. RAZ TURK MD Nov 01, 2018 10:41
== END 2018-11-01 10:41 | disposition home or self-care (01) ==
LOC: E/R 08:48
DX: R18.8 Other ascites (principal); I10 Essential (primary) hypertension; F17.210 Nicotine dependence, cigarettes, uncomplicated
CPT/HCPCS: 80053; 85025; 85610; 85730; Z7502; Z7610

== ENCOUNTER 2018-11-03 11:06 | Emergency (ER) | payer OTHER ==
[~2018-11-03] VITALS: Ht 185.4 cm; Wt 104.7 kg
[2018-11-03 11:11] VITALS: Ht 185.4 cm; Wt 104.7 kg
--- NOTE | 2018-11-03 11:18 | ERD ---
ER Documentation Chief Complaint Chief Complaint Complains of Abdominal pain Hx of Ascites HPI Patient is a 53-year-old male with a history of cirrhosis and ascites who presents for paracentesis. He said that he has abdominal swelling and bilateral leg swelling. He has no fevers. Upon review of old medical records the patient has multiple visits to the ER for paracentesis. Patient denies blood per rectum or melena, no fevers or chills, no chest pain or shortness of breath ROS All systems reviewed and are negative except as per history of present illness. Medications Home Meds Active Scripts Ibuprofen* (Motrin*) 600 Mg Tab, 600 MG PO Q8 PRN for PAIN AND/OR INFLAMMATION, #30 TAB Prov:CHANTAL HARDIN MD 11/03/18 Albuterol Sulfate* (Ventolin HFA*) 18 Gm Hfa.aer.ad, 2 PUFF INHALATION Q4H, #1 INHALER Prov:HANK DUNN MD 09/25/18 Reported Medications Amlodipine Besylate* (Amlodipine Besylate*) 2.5 Mg Tablet, 2.5 MG PO DAILY, #30 TAB 09/25/18 Spironolactone* (Aldactone*) 50 Mg Tablet, 50 MG PO BID, #60 TAB 09/25/18 Furosemide* (Furosemide*) 20 Mg Tablet, 20 MG PO BID, #30 TAB 09/25/18 Gabapentin* (Gabapentin*) 300 Mg Capsule, 300 MG PO TID, #90 CAP 09/25/18 Lisinopril/Hydrochlorothiazide (Lisinopril-Hctz 20-25 mg Tab) 1 Each Tablet, 1 EACH PO DAILY, TAB 09/25/18 Allergies Allergies: Coded Allergies: No Known Allergy (Unverified , 10/20/18) PMhx/Soc History of Surgery: Yes (R forearm fracture Sx) Anesthesia Reaction: No Hx Neurological Disorder: No Hx Respiratory Disorders: No Hx Cardiac Disorders: Yes (HTN) Hx Psychiatric Problems: No Hx Miscellaneous Medical Probl: Yes (HEPATITIS C, UMBILICAL HERNIA, CIRRHOSIS, ASCITIES) 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 Neck: Full range of motion. No meningismus. Resp: Clear to auscultation bilaterally Cardio: Regular rate and rhythm, no murmurs Abd: Distended protuberant abdomen, soft, nontender, no rigidity or guarding Skin: No petechiae or rashes Back: No midline or flank tenderness Ext: No cyanosis, or edema Neur: Awake and alert Psych: Normal Mood and Affect Procedures/MDM I ordered ultrasound-guided paracentesis to be performed by radiology department. 5 L of clear ascitic fluid was removed, patient feels better. Patient feels much better at this time, and vital signs are normal, symptoms have improved. I did give strict instructions to return to the ED if symptoms continue or worsen, patient will otherwise follow-up with primary care physician. Patient understood instructions and agreed to plan. Disclaimer: Inadvertent spelling and grammatical errors are likely due to EHR/dictation software use and do not reflect on the overall quality of patient care. Also, please note that the electronic time recorded on this note does not necessarily reflect the actual time of the patient encounter. Departure Diagnosis: Primary Impression: Ascites due to alcoholic cirrhosis Condition: CHANTAL Parker MD Nov 03, 2018 11:18
[2018-11-03 12:45] VITALS: BP 129/77; PULSE 87; RESP 20
[2018-11-03] MEDS ORDERED: IBUP-1542 PO (12:56)
[2018-11-03] MEDS ORDERED: IBUPROFEN 600 MG TAB PO ONE (13:00)
[2018-11-03] MEDS ORDERED: LIDOCAINE 1% (MPF) 5 ML VIAL ONE (13:02)
[2018-11-03 13:15] VITALS: BP 134/74; PULSE 81; RESP 20
[2018-11-03 13:36] VITALS: BP 124/79; PULSE 65; RESP 18
== END 2018-11-03 13:36 | disposition home or self-care (01) ==
LOC: E/R 11:06
DX: K70.31 Alcoholic cirrhosis of liver with ascites (principal); R40.2142 Coma scale, eyes open, spontaneous, at arrival to emergency department; R40.2252 Coma scale, best verbal response, oriented, at arrival to emergency department; R40.2362 Coma scale, best motor response, obeys commands, at arrival to emergency department; I10 Essential (primary) hypertension; Z87.891 Personal history of nicotine dependence
CPT/HCPCS: Z7502; Z7610

== ENCOUNTER 2018-11-08 09:10 | Emergency (ER) | payer OTHER ==
[~2018-11-08] VITALS: Ht 172.7 cm; Wt 100.6 kg
[~2018-11-08 09:10] MED LIST changes: +IBUP-1542 PO
[2018-11-08 09:12] VITALS: Ht 172.7 cm; Wt 100.6 kg
--- NOTE | 2018-11-08 10:19 | ERD ---
ER Documentation Chief Complaint Chief Complaint PT HERE FOR PARACENTESIS HPI This is a 53-year-old male with a history of liver cirrhosis and ascites who is here for therapeutic paracentesis. He has no abdominal pain nausea vomiting diarrhea and is slowly here to have his ascitic fluid removed ROS All systems reviewed and are negative except as per history of present illness. Medications Home Meds Reported Medications Amlodipine Besylate* (Amlodipine Besylate*) 2.5 Mg Tablet, 2.5 MG PO DAILY, #30 TAB 09/25/18 Spironolactone* (Aldactone*) 50 Mg Tablet, 50 MG PO BID, #60 TAB 09/25/18 Furosemide* (Furosemide*) 20 Mg Tablet, 20 MG PO BID, #30 TAB 09/25/18 Gabapentin* (Gabapentin*) 300 Mg Capsule, 300 MG PO TID, #90 CAP 09/25/18 Lisinopril/Hydrochlorothiazide (Lisinopril-Hctz 20-25 mg Tab) 1 Each Tablet, 1 EACH PO DAILY, TAB 09/25/18 Discontinued Scripts Ibuprofen* (Motrin*) 600 Mg Tab, 600 MG PO Q8 PRN for PAIN AND/OR INFLAMMATION, #30 TAB Prov:CHANTAL HARDIN MD 11/03/18 Albuterol Sulfate* (Ventolin HFA*) 18 Gm Hfa.aer.ad, 2 PUFF INHALATION Q4H, #1 INHALER Prov:HANK DUNN MD 09/25/18 Allergies Allergies: Coded Allergies: No Known Allergy (Unverified , 11/08/18) PMhx/Soc History of Surgery: Yes (R forearm fracture Sx) Anesthesia Reaction: No Hx Neurological Disorder: No Hx Respiratory Disorders: No Hx Cardiac Disorders: Yes (HTN) Hx Psychiatric Problems: No Hx Miscellaneous Medical Probl: Yes (HEPATITIS C, UMBILICAL HERNIA, CIRRHOSIS, ASCITIES) Hx Alcohol Use: Yes (120 days sober) Hx Substance Use: No Hx Tobacco Use: Yes (3-5 cigs/ daily down from 1 pack/ daily) Smoking Status: Current every day smoker FmHx Family History: No coronary disease Physical Exam Vitals Vital Signs Date Temp Pulse Resp B/P (MAP) Pulse Ox O2 O2 Flow FiO2 Time Delivery Rate 11/08/18 98.1 90 18 165/90 98 09:12 (115) Physical Exam Const: Well-developed, well-nourished Head: Atraumatic, normocephalic Eyes: Normal Conjunctiva, PERRLA, EOMI, normal sclera, no nystagmus ENT: Normal External Ears, Nose and Mouth, moist mucus membranes. Neck: Full range of motion. No meningismus, no lymphadenopathy. Resp: Clear to auscultation bilaterally, no wheezing, rhonchi, rales Cardio: Regular rate and rhythm, no murmurs, S1 S2 present Abd: Soft, non tender x 4, distended with ascites. Normal bowel sounds, no guarding or rebound, no pulsitile abdominal masses or bruits Skin: No petechiae or rashes, no ecchymosis , no maculopapular rash Back: No midline or flank tenderness Ext: No cyanosis, or edema, FROM x 4, normal inspection, neurovascularly intact x 4 Neur: Awake and alert, STR 5/5 x 4, sensation intact x 4, no focal findings, cerebellum intact Psych: Normal Mood and Affect Procedures/MDM The patient will have interventional radiology do a therapeutic paracentesis and then discharged home Departure Diagnosis: Primary Impression: Ascites Ascites type: other type Qualified Codes: R18.8 - Other ascites Condition: Stable MARVIN GUTHRIE Jose ManuelNitesh MIXON Nov 08, 2018 10:19
[2018-11-08 10:40] VITALS: BP 139/72; PULSE 91; RESP 20
[2018-11-08 11:05] VITALS: BP 135/75; PULSE 82; RESP 18
[2018-11-08] MEDS ORDERED: LIDOCAINE 1% (MPF) 5 ML VIAL ONE (11:15)
[2018-11-08 11:20] VITALS: BP 142/82; PULSE 89; RESP 20
== END 2018-11-08 11:43 | disposition home or self-care (01) ==
LOC: E/R 09:10
DX: R18.8 Other ascites (principal); I10 Essential (primary) hypertension; F17.210 Nicotine dependence, cigarettes, uncomplicated
CPT/HCPCS: Z7502; Z7610

== ENCOUNTER 2018-11-12 09:30 | Emergency (ER) | payer OTHER ==
[~2018-11-12] VITALS: Ht 177.8 cm; Wt 100.9 kg
[~2018-11-12 09:30] MED LIST changes: -ALBU18HF INHALATION; -IBUP-1542 PO
[2018-11-12 09:33] VITALS: Ht 177.8 cm; Wt 100.9 kg
[2018-11-12] MEDS ORDERED: LIDOCAINE 1% (MPF) 5 ML VIAL ONE (12:06)
[2018-11-12 12:40] VITALS: BP 125/63; PULSE 79; RESP 18
--- NOTE | 2018-11-12 15:01 | ERD ---
ER Documentation Chief Complaint Chief Complaint PT HERE FOR PARACENTESIS HPI 53-year-old male presents for request for therapeutic paracentesis. Patient has history of alcoholic cirrhosis, well-known to this facility, he has no fever or diarrhea. He has experienced abdominal distention, which is typical for symptoms. ROS All systems reviewed and are negative except as per history of present illness. Medications Home Meds Reported Medications Amlodipine Besylate* (Amlodipine Besylate*) 2.5 Mg Tablet, 2.5 MG PO DAILY, #30 TAB 09/25/18 Spironolactone* (Aldactone*) 50 Mg Tablet, 50 MG PO BID, #60 TAB 09/25/18 Furosemide* (Furosemide*) 20 Mg Tablet, 20 MG PO BID, #30 TAB 09/25/18 Gabapentin* (Gabapentin*) 300 Mg Capsule, 300 MG PO TID, #90 CAP 09/25/18 Lisinopril/Hydrochlorothiazide (Lisinopril-Hctz 20-25 mg Tab) 1 Each Tablet, 1 EACH PO DAILY, TAB 09/25/18 Discontinued Scripts Ibuprofen* (Motrin*) 600 Mg Tab, 600 MG PO Q8 PRN for PAIN AND/OR INFLAMMATION, #30 TAB Prov:CHANTAL HARDIN MD 11/03/18 Albuterol Sulfate* (Ventolin HFA*) 18 Gm Hfa.aer.ad, 2 PUFF INHALATION Q4H, #1 INHALER Prov:HANK DUNN MD 09/25/18 Allergies Allergies: Coded Allergies: No Known Allergy (Unverified , 11/12/18) PMhx/Soc History of Surgery: Yes (R forearm fracture Sx) Anesthesia Reaction: No Hx Neurological Disorder: No Hx Respiratory Disorders: No (cirrhosis, hepatitis C) Hx Cardiac Disorders: Yes (HTN) Hx Psychiatric Problems: No Hx Miscellaneous Medical Probl: Yes ( UMBILICAL HERNIA, ASCITIES) Hx Alcohol Use: Yes (120 days sober) Hx Substance Use: No Hx Tobacco Use: Yes (3-5 cigs/ daily down from 1 pack/ daily) Smoking Status: Current every day smoker Physical Exam Vitals Vital Signs Date Temp Pulse Resp B/P (MAP) Pulse Ox O2 O2 Flow FiO2 Time Delivery Rate 11/12/18 98.0 79 18 125/63 100 Room Air 12:40 (83) 11/12/18 87 18 111/86 100 Room Air 11:13 (94) 11/12/18 99.4 90 18 157/72 98 09:33 (100) Physical Exam Const: Afebrile, nontoxic Head: Atraumatic Eyes: Normal conjunctiva ENT: Normal external ears, nose and mouth. Neck: Resp: Normal respiratory effort Cardio: Regular rate and rhythm, no murmurs. Abd: soft, nontender, distention noted Ext: No cyanosis or edema Neur: Awake and alert Psych: Normal mood and affect Result Diagram: 11/12/18 1103 11/12/18 1103 Results 24 hrs Laboratory Tests Test 11/12/18 11:03 White Blood Count 10.9 10^3/ul Red Blood Count 2.43 10^6/ul Hemoglobin 8.5 g/dl Hematocrit 24.7 % Mean Corpuscular Volume 101.6 fl Mean Corpuscular Hemoglobin 35.0 pg Mean Corpuscular Hemoglobin Concent 34.4 g/dl Red Cell Distribution Width 13.2 % Platelet Count 94 10^3/UL Mean Platelet Volume 9.2 fl Immature Granulocytes % 0.500 % Neutrophils % 72.6 % Lymphocytes % 12.9 % Monocytes % 10.2 % Eosinophils % 3.1 % Basophils % 0.7 % Nucleated Red Blood Cells % 0.0 /100WBC Immature Granulocytes # 0.050 10^3/ul Neutrophils # 7.9 10^3/ul Lymphocytes # 1.4 10^3/ul Monocytes # 1.1 10^3/ul Eosinophils # 0.3 10^3/ul Basophils # 0.1 10^3/ul Nucleated Red Blood Cells # 0.0 10^3/ul Prothrombin Time 16.7 Sec Prothrombin Time Ratio 1.3 INR International Normalized Ratio 1.34 Sodium Level 127 mmol/L Potassium Level 4.9 mmol/L Chloride Level 101 mmol/L Carbon Dioxide Level 22 mmol/L Anion Gap 4 Blood Urea Nitrogen 27 mg/dl Creatinine 0.91 mg/dl Est Glomerular Filtrat Rate mL/min > 60 mL/min Glucose Level 108 mg/dl Calcium Level 8.1 mg/dl Total Bilirubin 0.7 mg/dl Direct Bilirubin 0.00 mg/dl Indirect Bilirubin 0.7 mg/dl Aspartate Amino Transf (AST/SGOT) 42 IU/L Alanine Aminotransferase (ALT/SGPT) 42 IU/L Alkaline Phosphatase 287 IU/L Total Protein 6.8 g/dl Albumin 2.4 g/dl Globulin 4.40 g/dl Albumin/Globulin Ratio 0.54 Lipase 321 U/L Current Medications Medications Dose Sig/Vernell Start Time Status Last (Trade) Ordered Route PRN Stop Time Admin Dose Reason Admin Lidocaine 5 ml STK-MED 11/12/18 DC 11/12/18 (Xylocaine ONCE .ROUTE 12:06 12:33 1% (Mpf)) 11/12/18 12:07 Procedures/MDM 53-year-old male presents for request for therapeutic paracentesis. Patient with no signs or symptoms of infection, procedure was performed without complication, at discharge the patient was ambulatory in no distress. Departure Diagnosis: Primary Impression: Ascites Ascites type: other type Qualified Codes: R18.8 - Other ascites Condition: Stable Patient Instructions: Ascites Additional Instructions: Call your primary care doctor TOMORROW for an appointment during the next 2-3 days.See the doctor sooner or return here if your condition worsens before your appointment time. CHANTAL KIRAN MD Nov 12, 2018 15:01
== END 2018-11-12 13:35 | disposition home or self-care (01) ==
LOC: E/R 09:30
DX: R18.8 Other ascites (principal); I10 Essential (primary) hypertension; F17.210 Nicotine dependence, cigarettes, uncomplicated
CPT/HCPCS: 36415; 80053; 83690; 85025; 85610; Z7502; Z7610

== ENCOUNTER 2018-11-21 10:03 | Emergency (ER) | payer OTHER ==
[~2018-11-21] VITALS: Ht 170.2 cm; Wt 100.0 kg
[2018-11-21 10:14] VITALS: Ht 170.2 cm; Wt 100.0 kg
--- NOTE | 2018-11-21 10:30 | ERD ---
ER Documentation Chief Complaint Chief Complaint ABDOMINAL DISTENTION NEEDS PARACENTESIS HPI 53-year-old male with a history of alcoholic liver cirrhosis and recurrent ascites requiring frequent paracentesis, well-known to this ED, presents complaining of increasing abdominal distention and requiring paracentesis. Denies abdominal pain, nausea, vomiting, diarrhea, hematemesis, hematochezia or melena. Denies chest pain or palpitations. Mild orthopnea and exertional dyspnea. No headache or confusion. No fevers or chills. ROS All systems reviewed and are negative except as per history of present illness. Medications Home Meds Reported Medications Amlodipine Besylate* (Amlodipine Besylate*) 2.5 Mg Tablet, 2.5 MG PO DAILY, #30 TAB 09/25/18 Spironolactone* (Aldactone*) 50 Mg Tablet, 50 MG PO BID, #60 TAB 09/25/18 Furosemide* (Furosemide*) 20 Mg Tablet, 20 MG PO BID, #30 TAB 09/25/18 Gabapentin* (Gabapentin*) 300 Mg Capsule, 300 MG PO TID, #90 CAP 09/25/18 Lisinopril/Hydrochlorothiazide (Lisinopril-Hctz 20-25 mg Tab) 1 Each Tablet, 1 EACH PO DAILY, TAB 09/25/18 Allergies Allergies: Coded Allergies: No Known Allergy (Unverified , 11/12/18) PMhx/Soc History of Surgery: Yes (R forearm fracture Sx) Anesthesia Reaction: No Hx Neurological Disorder: No Hx Respiratory Disorders: No (cirrhosis, hepatitis C) Hx Cardiac Disorders: Yes (HTN) Hx Psychiatric Problems: No Hx Miscellaneous Medical Probl: Yes ( UMBILICAL HERNIA, ASCITIES) Hx Alcohol Use: Yes (120 days sober) Hx Substance Use: No Hx Tobacco Use: Yes (3-5 cigs/ daily down from 1 pack/ daily) FmHx No family history relevant to presenting complaint Physical Exam Vitals Temperature: 97.6. Pulse: 86. Respirations: 18. Blood pressure 127/73. O2 saturation 100%. Physical Exam Const: No acute distress Head: Atraumatic Eyes: Normal Conjunctiva ENT: Normal External Ears, Nose and Mouth. Neck: Full range of motion. No JVD. Resp: Breath sounds diminished at the bases but otherwise clear to auscultation bilaterally. No rales rhonchi or wheezes. Cardio: Regular rate and rhythm, no murmurs Abd: Soft, distended, normal bowel sounds. Nontender. No rebound or guarding. Skin: No petechiae or rashes Back: No midline or flank tenderness Ext: No cyanosis, or edema Neur: Awake and alert. No focal deficit. Psych: Patient is on anxious or depressed. Results 24 hrs Current Medications Medications Dose Sig/Vernell Start Time Status Last (Trade) Ordered Route PRN Stop Time Admin Dose Reason Admin Lidocaine 5 ml STK-MED 11/21/18 DC 11/21/18 (Xylocaine ONCE .ROUTE 11:38 11:49 1% (Mpf)) 11/21/18 11:39 Procedures/MDM DOCUMENTS REVIEWED: ED nurse, prior ED, prior records ED COURSE: Ultrasound-guided paracentesis by IR. REEXAMINATION/REEVALUATION: Time: 14:05. Doing well. Symptomatically improved. No hypotension. MEDICAL DECISION MAKIN-year-old male with a history of alcoholic liver cirrhosis and recurrent ascites requiring frequent paracentesis, well-known to this ED, presents complaining of increasing abdominal distention and requiring paracentesis. Most recent labs from 11/12/2018 are reviewed and are consistent with prior results. Large volume ultrasound-guided paracentesis performed by interventional radiology and 5 liters removed. Patient feels significantly better. No hypotension. Although spontaneous bacterial peritonitis is considered patient has no no fever, abdominal tenderness or other signs of peritonitis or an acute intra-abdominal process including but not limited to bowel obstruction, colitis, appendicitis and mesenteric ischemia hence CT scan is not indicated. Stable for discharge with precautionary instructions and outpatient follow-up as counseled. Counseled patient regarding diagnostic workup, diagnosis and need for followup. Understands to return to ED for bleeding, pain, discharge from puncture site, if symptoms recur, worsen or any other concerns. Departure Diagnosis: Primary Impression: Ascites due to alcoholic cirrhosis Condition: Stable JONAS TREVIZO MD Nov 21, 2018 10:30
[2018-11-21 11:10] VITALS: BP 126/82; PULSE 75; RESP 20
[2018-11-21] MEDS ORDERED: LIDOCAINE 1% (MPF) 5 ML VIAL ONE (11:38)
[2018-11-21 11:56] VITALS: BP 131/76; PULSE 72; RESP 18
[2018-11-21 12:05] VITALS: BP 125/68; PULSE 72; RESP 18
== END 2018-11-21 12:06 | disposition home or self-care (01) ==
LOC: E/R 10:03
DX: K70.31 Alcoholic cirrhosis of liver with ascites (principal); I10 Essential (primary) hypertension; F17.210 Nicotine dependence, cigarettes, uncomplicated
CPT/HCPCS: Z7502; Z7610

== ENCOUNTER 2018-11-25 10:51 | Emergency (ER) | payer OTHER ==
[~2018-11-25] VITALS: Wt 99.7 kg
[2018-11-25 11:03] VITALS: BP 130/67; PULSE 89; RESP 20
--- NOTE | 2018-11-25 12:38 | ERD ---
ER Documentation Chief Complaint Chief Complaint STATES "PERICENTESIS" HPI This is a 53-year-old male with a known history of alcoholic liver cirrhosis. The patient receives multiple therapeutic paracentesis is roughly on a weekly basis. 7 days prior to arrival the patient had 5 L removed at [facility] and several days before that had 8 L removed at [facility]. He returns to the emergency department today complaining of abdominal distention with no abdominal pain. He complains of mild dyspnea but states this is a common symptom just prior to his paracentesis. He said no fevers or shaking or chills. He denies any hemoptysis hematemesis or melanotic stools ROS All systems reviewed and are negative except as per history of present illness. Medications Home Meds Reported Medications Amlodipine Besylate* (Amlodipine Besylate*) 2.5 Mg Tablet, 2.5 MG PO DAILY, #30 TAB 09/25/18 Spironolactone* (Aldactone*) 50 Mg Tablet, 50 MG PO BID, #60 TAB 09/25/18 Furosemide* (Furosemide*) 20 Mg Tablet, 20 MG PO BID, #30 TAB 09/25/18 Gabapentin* (Gabapentin*) 300 Mg Capsule, 300 MG PO TID, #90 CAP 09/25/18 Lisinopril/Hydrochlorothiazide (Lisinopril-Hctz 20-25 mg Tab) 1 Each Tablet, 1 EACH PO DAILY, TAB 09/25/18 Allergies Allergies: Coded Allergies: No Known Allergy (Unverified , 11/12/18) PMhx/Soc History of Surgery: Yes (R forearm fracture Sx) Anesthesia Reaction: No Hx Neurological Disorder: No Hx Respiratory Disorders: No (cirrhosis, hepatitis C) Hx Cardiac Disorders: Yes (HTN) Hx Psychiatric Problems: No Hx Miscellaneous Medical Probl: Yes ( UMBILICAL HERNIA, ASCITIES) 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 Well-nourished. Respiratory: Not using accessory muscles of respiration.Lungs were clear to auscultation bilaterally. No rhonchi. No rales. No wheezing. Cardiovascular: Regular rate regular rhythm.No murmurs. No rubs were appreciated.S1, S2 normal. Distal pulses are palpable 2+ bilaterally. GI: Abdomen was soft. Nontender. Distended with tense ascites and positive fluid thrill. No pulsatile abdominal masses or bruits. No rebound. No guarding. Bowel sounds were present and normal. Muscle skeletal: Full range of motion of both the upper and lower extremities bilaterally.Normal muscle tone.No assymetrical calf tenderness or swelling. Skin: No petechia, no purpura. No lesions on the palms or the soles of the feet. No maculopapular rash. NEURO: Patient was alert, awake, orientated x3.No facial droop. Gait observed and normal with no ataxia.Speech had regular rate and rhythm. No focal neurological deficits. Procedures/MDM This is a very pleasant 53-year-old male that presented to the emergency department for therapeutic paracentesis. The patient had no signs of spontaneous bacterial peritonitis. The patient had ancillary laboratory work which showed no thrombocytopenia or coagulopathy. The patient had a therapeutic paracentesis performed with removal of 5 L of fluid by the healthcare technician and the radiologist. Patient tolerated the procedure well. The patient was discharged home in fair condition. They were instructed to return to the emergency department at any time if there was any worsening of their condition. The patient stated they would follow up with their PCP in the next 24-48 hours to initiate a suitable medication regimen under the care of their PCP as well as to allow their PCP to monitor any drug reactions. The patient was discharged home with prescriptions after they gave informed consent to the new medication. They were also fully informed by myself on the adverse effects and adverse drug interactions in order to provide adequate safeguards to prevent possible adverse reactions to medications. Departure Diagnosis: Primary Impression: Ascites Ascites type: due to alcoholic cirrhosis Qualified Codes: K70.31 - Alcoholic cirrhosis of liver with ascites Condition: CHARAN Liu MD Nov 25, 2018 12:38
== END 2018-11-25 14:04 | disposition left against medical advice (07) ==
LOC: E/R 10:51
DX: K70.31 Alcoholic cirrhosis of liver with ascites (principal); I10 Essential (primary) hypertension; F17.210 Nicotine dependence, cigarettes, uncomplicated
CPT/HCPCS: 85025; 85610; 85730; Z7502; 99283

== ENCOUNTER 2018-11-26 10:53 | Emergency (ER) | payer OTHER ==
[~2018-11-26] VITALS: Ht 172.7 cm; Wt 100.0 kg
[2018-11-26 11:00] VITALS: Ht 172.7 cm; Wt 100.0 kg
[2018-11-26] MEDS ORDERED: LIDOCAINE 1% (MPF) 5 ML VIAL ONE (13:57)
[2018-11-26 14:21] VITALS: BP 110/60; PULSE 65; RESP 18
--- NOTE | 2018-11-26 14:24 | ERD ---
ER Documentation Chief Complaint Chief Complaint pt is bib self for paracentesis HPI This is a 53-year-old male with a known history of alcoholic liver cirrhosis. The patient receives multiple therapeutic paracentesis is roughly on a weekly basis. 7 days prior to arrival the patient had 5 L removed at [facility] and several days before that had 8 L removed at [facility]. He returns to the emergency department today complaining of abdominal distention with no abdominal pain. He complains of mild dyspnea but states this is a common symptom just prior to his paracentesis. He said no fevers or shaking or chills. He denies any hemoptysis hematemesis or melanotic stools. Patient had been seen and evaluated yesterday at [facility] by myself but had to leave AGAINST MEDICAL ADVICE as he had to attend a meeting therefore returns today for therapeutic paracentesis. ROS All systems reviewed and are negative except as per history of present illness. Medications Home Meds Reported Medications Amlodipine Besylate* (Amlodipine Besylate*) 2.5 Mg Tablet, 2.5 MG PO DAILY, #30 TAB 09/25/18 Spironolactone* (Aldactone*) 50 Mg Tablet, 50 MG PO BID, #60 TAB 09/25/18 Furosemide* (Furosemide*) 20 Mg Tablet, 20 MG PO BID, #30 TAB 09/25/18 Gabapentin* (Gabapentin*) 300 Mg Capsule, 300 MG PO TID, #90 CAP 09/25/18 Lisinopril/Hydrochlorothiazide (Lisinopril-Hctz 20-25 mg Tab) 1 Each Tablet, 1 EACH PO DAILY, TAB 09/25/18 Allergies Allergies: Coded Allergies: No Known Allergy (Unverified , 11/12/18) PMhx/Soc History of Surgery: Yes (R forearm fracture Sx) Anesthesia Reaction: No Hx Neurological Disorder: No Hx Respiratory Disorders: No (cirrhosis, hepatitis C) Hx Cardiac Disorders: Yes (HTN) Hx Psychiatric Problems: No Hx Miscellaneous Medical Probl: Yes ( UMBILICAL HERNIA, ASCITIES) Hx Alcohol Use: 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 Well-nourished. HEENT:Normocephalic. Atraumatic.Pupils were equal round reactive to light. Moist mucous membranes.No tonsillar exudates. No scleral icterus Respiratory: Not using accessory muscles of respiration.Lungs were clear to auscultation bilaterally. No rhonchi. No rales. No wheezing. Cardiovascular: Regular rate regular rhythm.No murmurs. No rubs were appreciated.S1, S2 normal. Distal pulses are palpable 2+ bilaterally. GI: Abdomen was soft. Tense abdominal ascites with positive fluid thrill. no pulsatile abdominal masses or bruits. No rebound. No guarding. Bowel sounds were present and normal. Skin: No petechia, no purpura. No lesions on the palms or the soles of the feet. No maculopapular rash. NEURO: Patient was alert, awake, orientated x3.No facial droop. Gait observed and normal with no ataxia.Speech had regular rate and rhythm. No focal neurological deficits. Results 24 hrs Current Medications Medications Dose Sig/Vernell Start Time Status Last (Trade) Ordered Route PRN Stop Time Admin Dose Reason Admin Lidocaine 5 ml STK-MED 11/26/18 DC (Xylocaine ONCE .ROUTE 13:57 1% (Mpf)) 11/26/18 13:58 Procedures/MDM This is a 53-year-old male that presented to the emergency department for therapeutic paracentesis. No ancillary laboratory work needed to be obtained as this was reviewed yesterday by myself. The patient had a nurse canine deputy present with the radiologist and 5 L of transparent ascitic fluid was removed from the abdomen with no complications using ultrasound guidance. The patient tolerated the procedure well and he felt comfortable being discharged. He was instructed to return to the emergency department immediate there is any worsening of his symptoms. Departure Diagnosis: Primary Impression: Ascites Ascites type: due to alcoholic cirrhosis Qualified Codes: K70.31 - Alcoholic cirrhosis of liver with ascites Condition: Fair Patient Instructions: Ascites CHARAN CANSECO MD Nov 26, 2018 14:24
== END 2018-11-26 14:24 | disposition home or self-care (01) ==
LOC: E/R 10:53
DX: K70.31 Alcoholic cirrhosis of liver with ascites (principal); I10 Essential (primary) hypertension; Z87.891 Personal history of nicotine dependence
CPT/HCPCS: Z7502; Z7610

== ENCOUNTER 2018-11-29 09:31 | Emergency (ER) | payer OTHER ==
[~2018-11-29] VITALS: Wt 101.0 kg
--- NOTE | 2018-11-29 12:12 | ERD ---
ER Documentation Chief Complaint Chief Complaint here for praracenthesis HPI This is a 53-year-old male who is here for therapeutic paracentesis. His history of ascites and he is going to have his therapeutic treatment here and go home. He has no abdominal pain no nausea vomiting diarrhea no fever. ROS All systems reviewed and are negative except as per history of present illness. Medications Home Meds Reported Medications Amlodipine Besylate* (Amlodipine Besylate*) 2.5 Mg Tablet, 2.5 MG PO DAILY, #30 TAB 09/25/18 Spironolactone* (Aldactone*) 50 Mg Tablet, 50 MG PO BID, #60 TAB 09/25/18 Furosemide* (Furosemide*) 20 Mg Tablet, 20 MG PO BID, #30 TAB 09/25/18 Gabapentin* (Gabapentin*) 300 Mg Capsule, 300 MG PO TID, #90 CAP 09/25/18 Lisinopril/Hydrochlorothiazide (Lisinopril-Hctz 20-25 mg Tab) 1 Each Tablet, 1 EACH PO DAILY, TAB 09/25/18 Allergies Allergies: Coded Allergies: No Known Allergy (Unverified , 11/12/18) PMhx/Soc History of Surgery: Yes (R forearm fracture Sx) Anesthesia Reaction: No Hx Neurological Disorder: No Hx Respiratory Disorders: No (cirrhosis, hepatitis C) Hx Cardiac Disorders: Yes (HTN) Hx Psychiatric Problems: No Hx Miscellaneous Medical Probl: Yes ( UMBILICAL HERNIA, ASCITIES) Hx Alcohol Use: Yes (120 days sober) Hx Substance Use: No Hx Tobacco Use: Yes (3-5 cigs/ daily down from 1 pack/ daily) FmHx Family History: No coronary disease Physical Exam Vitals Vital Signs Date Temp Pulse Resp B/P (MAP) Pulse Ox O2 O2 Flow FiO2 Time Delivery Rate 11/29/18 98.8 75 18 139/63 99 09:34 (88) Physical Exam Const: Well-developed, well-nourished Head: Atraumatic, normocephalic Eyes: Normal Conjunctiva, PERRLA, EOMI, normal sclera, no nystagmus ENT: Normal External Ears, Nose and Mouth, moist mucus membranes. Neck: Full range of motion. No meningismus, no lymphadenopathy. Resp: Clear to auscultation bilaterally, no wheezing, rhonchi, rales Cardio: Regular rate and rhythm, no murmurs, S1 S2 present Abd: Soft, nontender x4 with distended ascites.. Normal bowel sounds, no guarding or rebound, no pulsitile abdominal masses or bruits Skin: No petechiae or rashes, no ecchymosis , no maculopapular rash Back: No midline or flank tenderness Ext: No cyanosis, or edema, FROM x 4, normal inspection, neurovascularly intact x 4 Neur: Awake and alert, STR 5/5 x 4, sensation intact x 4, no focal findings, cerebellum intact Psych: Normal Mood and Affect Procedures/MDM Patient get therapeutic paracentesis by interventional radiologist and be discharged home after this. He has no signs of bacterial peritonitis Departure Diagnosis: Primary Impression: Ascites Ascites type: other type Qualified Codes: R18.8 - Other ascites Condition: Stable MARVIN GUTHRIE DO Nov 29, 2018 12:12
[2018-11-29 14:00] VITALS: BP 145/76; PULSE 77
[2018-11-29 14:45] VITALS: BP 147/77; PULSE 76
[2018-11-29 14:48] VITALS: BP 128/89; PULSE 88; RESP 18
[2018-11-29] MEDS ORDERED: LIDOCAINE 1% (MPF) 5 ML VIAL ONE (15:23)
== END 2018-11-29 14:51 | disposition home or self-care (01) ==
LOC: E/R 09:31
DX: R18.8 Other ascites (principal); I10 Essential (primary) hypertension; Z87.891 Personal history of nicotine dependence
CPT/HCPCS: Z7502; Z7610

== ENCOUNTER 2018-12-03 10:58 | Emergency (ER) | payer OTHER ==
[~2018-12-03] VITALS: Wt 101.8 kg
--- NOTE | 2018-12-03 13:42 | ERD ---
ER Documentation Chief Complaint Chief Complaint HERE FOR PARACENTHESIS HPI This is a 53-year-old male who is here for paracentesis that is therapeutic in nature. He says he needs a abdominal drainage again he was here on Wednesday this week for drainage. No pain but he does have some leakage of fluid on the right side related to the puncture on Wednesday. No fever no vomiting diarrhea nausea ROS All systems reviewed and are negative except as per history of present illness. Medications Home Meds Reported Medications Amlodipine Besylate* (Amlodipine Besylate*) 2.5 Mg Tablet, 2.5 MG PO DAILY, #30 TAB 09/25/18 Spironolactone* (Aldactone*) 50 Mg Tablet, 50 MG PO BID, #60 TAB 09/25/18 Furosemide* (Furosemide*) 20 Mg Tablet, 20 MG PO BID, #30 TAB 09/25/18 Gabapentin* (Gabapentin*) 300 Mg Capsule, 300 MG PO TID, #90 CAP 09/25/18 Lisinopril/Hydrochlorothiazide (Lisinopril-Hctz 20-25 mg Tab) 1 Each Tablet, 1 EACH PO DAILY, TAB 09/25/18 Allergies Allergies: Coded Allergies: No Known Allergy (Unverified , 11/12/18) PMhx/Soc History of Surgery: Yes (R forearm fracture Sx) Anesthesia Reaction: No Hx Neurological Disorder: No Hx Respiratory Disorders: No (cirrhosis, hepatitis C) Hx Cardiac Disorders: Yes (HTN) Hx Psychiatric Problems: No Hx Miscellaneous Medical Probl: Yes ( UMBILICAL HERNIA, ASCITIES) Hx Alcohol Use: Yes (120 days sober) Hx Substance Use: No Hx Tobacco Use: Yes (3-5 cigs/ daily down from 1 pack/ daily) FmHx Family History: No coronary disease Physical Exam Vitals Vital Signs Date Temp Pulse Resp B/P (MAP) Pulse Ox O2 O2 Flow FiO2 Time Delivery Rate 12/03/18 98.3 90 18 149/80 99 11:01 (103) Physical Exam Const: Well-developed, well-nourished Head: Atraumatic, normocephalic Eyes: Normal Conjunctiva, PERRLA, EOMI, normal sclera, no nystagmus ENT: Normal External Ears, Nose and Mouth, moist mucus membranes. Neck: Full range of motion. No meningismus, no lymphadenopathy. Resp: Clear to auscultation bilaterally, no wheezing, rhonchi, rales Cardio: Regular rate and rhythm, no murmurs, S1 S2 present Abd: Soft, distended with ascites. Normal bowel sounds, no guarding or rebound, no pulsitile abdominal masses or bruits Skin: No petechiae or rashes, no ecchymosis , no maculopapular rash Back: No midline or flank tenderness Ext: No cyanosis, or edema, FROM x 4, normal inspection, neurovascularly intact x 4 Neur: Awake and alert, STR 5/5 x 4, sensation intact x 4, no focal findings, cerebellum intact Psych: Normal Mood and Affect Procedures/MDM Patient will get a therapeutic paracentesis here He will be discharged after interventional radiologist does therapeutic paracentesis Departure Diagnosis: Primary Impression: Ascites Ascites type: other type Qualified Codes: R18.8 - Other ascites Condition: Stable MARVIN GUTHRIE DO Dec 03, 2018 13:42
[2018-12-03] MEDS ORDERED: LIDOCAINE 1% (MPF) 5 ML VIAL ONE (14:54)
[2018-12-03 15:16] VITALS: BP 139/72; PULSE 73; RESP 16
== END 2018-12-03 15:20 | disposition home or self-care (01) ==
LOC: E/R 10:58
DX: R18.8 Other ascites (principal); I10 Essential (primary) hypertension; F17.210 Nicotine dependence, cigarettes, uncomplicated
CPT/HCPCS: Z7502; Z7610